=== PATIENT | male | born 1975 | race Caucasian/White ===

== ENCOUNTER 2019-10-24 08:41 | Observation (INO) | payer BC, SELFPAY ==
[2019-10-24] VITALS (13 sets, daily range): BP systolic 133–175; BP diastolic 92–107; PULSE 58–94; RESP 14–22; TEMP 36–36.8; O2SAT 96–99; BMI 30.5
--- NOTE | 2019-10-24 | ECHO_ITS ---
Patient Info Name: Jamal Merino Age: 44 years : 1975 Gender: Male Ht: 71 in Wt: 219 lbs BSA: 2.26 m2 HR: 61 bpm BP: 164 / 106 mmHg Heart Rhythm: Sinus Rhythm Technical Quality: Good Exam Date: 10/24/2019 3:53 PM Exam Location: [facility] Patient Status: Inpatient Admit Date: 10/24/2019 Staff Ordering Physician: Rachel Nguyen NP Software Educator: Renny Gomes RDCS Attending Provider: Delaney Milligan MD Referring Physician: Patrick HOLLAND; Exam Type: CA echo dop color flow w con Study Info Indications R07.9 - Chest pain, unspecified Complete two-dimensional, color flow and Doppler transthoracic echocardiogram is performed with contrast to opacify the left ventrical and to improve the deliniation of the left ventrical endocarial boarders. Contrast/Agitated Saline Contrast/Ag. Saline: Definity Amount: 2.00 ml Administered By: Nannette Mueller RN Existing IV Access: Yes History/Risk Factors Chest pain; uncontrolled HTN, EtOH. Summary 1. Normal left ventricular systolic function with no focal wall motion abnormalities. Ejection fraction measured 71%, visually 65-70%. Mild LVH. Diastolic dysfunction grade 1 is present. 2. No significant valve disease. 3. Somewhat technically difficult study. Definity echo contrast used. 4. Normal sinus rhythm. Left Ventricle Left ventricular chamber dimension is normal. Left ventricular systolic function is normal, estimated at 65-70%. There is no increased left ventricular wall thickness. Left ventricular septal wall motion is normal. The left ventricular diastolic function is grade I diastolic dysfunction. Right Ventricle Right ventricular chamber dimension is normal. Right ventricular systolic function is normal. Left Atria Left atrial chamber dimension is normal. Right Atria Right atrial chamber dimension is normal. Aortic Valve The aortic valve is trileaflet. There is no aortic valve sclerosis. There is no aortic valve stenosis. There is no aortic valve regurgitation. Pulmonic Valve The pulmonic valve is normal. There is no pulmonic valve stenosis. There is no pulmonic regurgitation. Mitral Valve The mitral valve has normal leaflets. There is no mitral valve stenosis. There is no mitral valve regurgitation. Tricuspid Valve The tricuspid valve leaflets are normal. There is no significant tricuspid valve stenosis. There is trace tricuspid valve regurgitation. No pulmonary hypertension, estimated pulmonary arterial systolic pressure is Empty. Pericardium/Pleural The pericardium appears normal. There is no pericardial effusion. Inferior Vena Cava Not well visualized inferior vena cava with >50% collapse upon inspiration consistent with Empty right atrial pressure, 5 mmHg. Aorta The aortic root size at the sinus of Valsalva is normal. The prox ascending aorta size is normal. Left Ventricular Outflow Tract Name Value Normal LVOT 2D LVOT Diameter 2.16 cm LVOT Doppler LVOT Peak Gradient 5 mmHg LV
--- NOTE | ~2019-10-24 | CT_ITS ---
EXAMINATION: CTA brain carotid DATE: 10/24/2019 10:19 INDICATION: Left-sided numbness. TECHNIQUE: Computed tomographic angiography (CTA) of the head was performed without and with 100 mL O mnipaque-350 intravenous contrast. CTA of the neck was performed with intravenous contrast. Automated exposure control and iterative reconstruction technique were employed. The dose-length product was 1 826.41 mGy-cm. Maximum intensity projection and volume rendered 3D-reconstructions were created by jean pierre ventura technologist on a separate workstation. COMPARISON: None. FINDINGS: HEAD CTA: There is no intracranial hemorrhage, acute infarction, or abnormal intracranial mass lesion . The ventricles are normal in size. There is mild mucosal thickening in the paranasal sinuses. The o rbits are normal. The mastoid air cells are normal. Left vertebral artery is dominant. There is no si gnificant stenosis of basilar artery or the posterior cerebral arteries. There is no significant sten osis of the intracranial internal carotid arteries or anterior or middle cerebral arteries. Anterior communicating artery is normal. The posterior communicating arteries are normal. There is no aneurysm . NECK CTA: Calcified left hilar lymph nodes are consistent with old granulomatous disease. There is no significant stenosis of the vertebral arteries. There is no visible plaque in the proximal internal carotid arteries. There is 0% stenosis of the proximal right internal carotid artery relative to norm al distal artery lumen diameter (NASCET criteria). There is 0% stenosis of the proximal left internal carotid artery relative to normal distal artery lumen diameter. There is mild cervical spondylosis. IMPRESSION: 1. Normal brain. No aneurysm or significant intracranial arterial stenosis. 2. Normal neck arteries. Reviewed, dictated and finalized at location A.
--- NOTE | ~2019-10-24 | XR_ITS ---
EXAMINATION: XR chest 2V EXAM DATE: 10/24/2019 10:31 INDICATION: Cough and fever. TECHNIQUE: Frontal and lateral projections of the chest obtained and reviewed. There is no prior aust[place] dy for comparison. FINDINGS: The lungs are clear. There are no pleural effusions. The cardiomediastinal silhouette is within normal limits. There is no pneumothorax suspected. The bones and soft tissues are unremarkab le. IMPRESSION: No acute cardiopulmonary findings. Reviewed, dictated and finalized at location B.
--- NOTE | ~2019-10-24 | US_ITS ---
EXAMINATION: US carotid duplex BI DATE: 10/25/2019 14:20 INDICATION: Paresthesias of the of left arm and leg. TECHNIQUE: Grayscale, color Doppler, and pulsed Doppler images of the cervical carotid arteries were obtained. The degree of vessel stenosis is placed in one of the following categories: normal, <50%, 5 0-69%, >=70% but less than near-occlusion, near-occlusion, or total occlusion. Note that percent sten osis relative to normal distal artery lumen diameter is indirectly measured from velocity measurement s as described by John, et al. Radiology 2003; 229:340-346. COMPARISON: CTA neck 10/24/2019 FINDINGS: RIGHT: The right common carotid artery (CCA) peak systolic velocity (PSV) is 98 cm/s. The right internal car otid artery (ICA) PSV is 61 cm/s. The right ICA end-diastolic velocity (EDV) is 30 cm/s. The right IC A/CCA PSV ratio is 0.6. Grayscale and color Doppler images yield an estimate of 0% diameter reduction from plaque in the ICA. There is antegrade flow in the right vertebral artery. LEFT: The left CCA PSV is 88 cm/s. The left ICA PSV is 69 cm/s. The left ICA EDV is 30 cm/s. The left ICA/C CA PSV ratio is 0.8. Grayscale and color Doppler images yield an estimate of 0% diameter reduction fr om plaque in the ICA. There is antegrade flow in the left vertebral artery. IMPRESSION: 1. Normal internal carotid arteries. Reviewed, dictated and finalized at location A.
--- NOTE | ~2019-10-24 | NM_ITS ---
EXAMINATION: NM stress w perf spect multi DATE: 10/25/2019 13:46 INDICATION: Chest pain. TECHNIQUE: Rest images were obtained following intravenous administration of 9.8 mCi Tc99m tetrofosmi n ([employer] The patient performed an exercise activity. At peak exercise, 31.7 mCi Tc99m tetrofosmin ([employer]) was administered intravenously, and stress images were obtained. Data was reconstructed in to short axis and horizontal and vertical long axis SPECT images. Gated SPECT images were also obtain ed. COMPARISON: None. FINDINGS: There is no definite reversible or fixed perfusion abnormality to suggest ischemia or infar ction. There is no segmental wall motion abnormality. Left ventricular ejection fraction measures 6 0%. IMPRESSION: 1. No definite ischemia or infarct. 2. Normal left ventricular ejection fraction measuring 60%. Reviewed, dictated and finalized at location A.
--- NOTE | 2019-10-24 08:58 | ED.CHESTPAIN ---
HPI - Chest Pain General Chief Complaint: Chest Pain Stated Complaint: cp Time Seen by Provider: 10/24/19 08:56 Source: patient and RN notes reviewed Mode of arrival: EMS Limitations: no limitations History of Present Illness HPI narrative: Pt is a 44 y/o male presenting to the ED via EMS c/o CP. Pt reports he started experiencing lt sided CP at 0745 this morning while dropping his child off at school. Pt states the pain is non-radiating and is currently 5/10 on the pain scale. Pt notes nothing has seemed to alleviate or worsen his pain. Pt also reports lightheadedness, dizziness, LUE numbness, and LLE numbness, but denies weakness or fever. Pt notes the lt sided numbness occurred with the CP and is still present in his ED bed. Pt reports he has had similar Sx's previously and was diagnosed with HLD and Anxiety. Pt notes he has been able to ambulate. Pt states he presented to an UC last Monday due to having cough, rhinorrhea, and chills and states he tested negative for Influenza, but they prescribed Flu medication anyway. Pt notes he is not compliant with his Statin medication and denies being a smoker. Pt states his only FMHx of Cardiovascular disease is HLD. Pertinent past history: other (HLD; Anxiety) Onset (ago): hour(s) (1.25) Pain location: left chest Associated symptoms: cough and other (LUE numbness; LLE numbness; Lightheadedness; dizziness; chills; rhinorrhea) Related Data Home Medications Medication Instructions Recorded Confirmed esomeprazole magnesium [Nexium] 40 mg PO DAILY 06/26/19 10/24/19 Allergies Allergy/AdvReac Type Severity Reaction Status Date / Time No Known Allergies Allergy Verified 10/24/19 08:44 Review of Systems Review of Systems: Narrative: Constitutional: Positive for chills. Negative for fever. HENT: Positive for rhinorrhea. Respiratory: Positive for cough. Cardiovascular: Positive for left sided chest pain. Neurological: Positive for lightheadedness, dizziness, LUE numbness, and LLE numbness. Negative for weakness. All systems reviewed & are unremarkable except as noted in HPI and below PMFSH Past Medical History Medical History (Updated 10/24/19 @ 16:54 by Consuelo Champion MD) Anxiety GERD (gastroesophageal reflux disease) HLD (hyperlipidemia) Hypertension Untreated Surgical History Surgical History (Updated 10/24/19 @ 15:33 by Rachel Nguyen NP) H/O knee surgery Left knee meniscus tear repair Family History Family History (Updated 10/24/19 @ 15:34 by Rachel Nguyen NP) Mother HLD (hyperlipidemia) Social History Social History (Updated 10/24/19 @ 15:35 by Rachel Nguyen NP) Social History: He lives with his and 3 children. They are in the process of transitioning from 1 house the other. 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 One of his children is a special needs. His sister Elvira Huddleston is a durable power associate attorney for healthcare. He desires to be a full code. He said that he socially smoked but does not do it routinely. Patient stated he drinks about 4 or 5 alcoholic drinks a day. He stated he has never been through alcoholic withdrawal symptoms in the past. No illicit drug Smoking status: Never smoker Alcohol intake: current Drinks per week: 28 Substance use: never Substance use type: does not use Occupation/Education: occupation Gender identity (if verbalized by the patient): Male Spiritual care concerns: No Agree to blood products: Yes Exam Const: General: no acute distress and well developed Orientation/consciousness: oriented to person, oriented to place, oriented to time and patient oriented x3 HENMT: Head: normocephalic Ears: external ears normal General nose exam: Normal external nose present Eyes: General: appearance normal, both eyes and all related structures Conjunctivae: conjunctivae normal Neck: Neck: normal visual inspection and full ROM Chest: Chest palpation & insp
--- NOTE | 2019-10-24 09:13 | ECG_ITS ---
Measurements Intervals [place] Rate: 79 P: 25 NM: 196 QRS: -34 QRSD: 112 T: 8 QT: 375 QTc: 432 Interpretive Statements SINUS RHYTHM WITH SINUS ARRHYTHMIA LEFT AXIS DEVIATION INTRAVENTRICULAR CONDUCTION DELAY DELAYED PRECORDIAL R/S TRANSITION BORDERLINE T WAVE ABNORMALITY- INFERIOR LEADS BORDERLINE ECG Electronically Signed On 10-24-2019 11:42:45 CDT by Ashwin Richard D.O.
--- NOTE | 2019-10-24 09:30 | PC.NURSE ---
Patient c/o feeling very dizzy and is noted to be diaphoretic at this time. Patient was lowered into a supine position and blood pressure checked. EDP was notified and nitro paste was removed from the patient at this time.
[2019-10-24 09:41] LABS: Basophils Percent Auto 0.7 % (0.2-1.2); Eosinophils Absolute Auto 0.1 K/mm3 (0-0.3); Eosinophils Percent Auto 2.4 % (0-4.4); Hematocrit 44.1 % (42.0-52.0); Hemoglobin 15.6 g/dL (14.0-18.0); Immature Granulocyte Absolute 0.01 K/mm3 (0.00-0.031); Immature Granulocyte Percent A 0.3 % (0-0.5); Lymphocytes Absolute Auto 1.42 K/mm3 (0.9-3.2); Lymphocytes Percent Auto 49.5 % (18.3-44.2); Mean Corpuscular HGB Conc 35.4 g/dl (32-36); Mean Corpuscular Hemoglobin 34.5 pg (26-34); Mean Corpuscular Volume 97.6 fl (80-100); Mean Platelet Volume 9.2 fl (7.4-10.4); Monocytes Absolute Auto 0.2 K/mm3 (0.1-0.6); Monocytes Percent Auto 6.6 % (2.6-8.5); Neutrophils Absolute Auto 1.2 K/mm3 (1.3-6.7); Neutrophils Percent Auto 40.5 % (45.5-73.1); Platelet Count Result 182 k/mm3 (150-375); Red Blood Count 4.52 M/mm3 (4.6-6.20); Red Cell Distribution Width 11.5 % (11.5-14.5); White Blood Count 2.9 K/mm3 (4.5-10.0)
[2019-10-24 09:52] LABS: Alanine Aminotransferase 112 U/L (4-50); Albumin Level 4.8 g/dL (3.5-5.1); Alkaline Phosphatase 71 U/L (38-126); Aspartate Amino Transferase 104 U/L (17-59); Bilirubin,Total 0.6 mg/dL (0.2-1.3); Blood Urea Nitrogen 6 mg/dL (9-20); Calcium 9.4 mg/dL (8.4-10.2); Carbon Dioxide 22 mmol/L (22-30); Chloride 101 mmol/L (98-107); Estimated CRCL calculation 122 ml/min; Estimated Glomerular Filt Rate > 60; Glucose 127 mg/dL (75-110); Potassium 3.7 mmol/L (3.4-5.0); Sodium 138 mmol/L (137-145)
[2019-10-24 10:04] LABS: Troponin I < 0.012 ng/mL (0.000-0.034)
[2019-10-24 12:42] LABS: Troponin I < 0.012 ng/mL (0.000-0.034)
[2019-10-24 12:55] LABS: Hepatitis B Surface Antigen Negative (Negative)
[2019-10-24 13:01] LABS: HAV RESULT Negative (Negative); Hepatitis B Core IgM Result Negative (Negative)
[2019-10-24 13:12] LABS: Hepatitis C Virus Antibody Negative (Negative)
[2019-10-24] MEDS: ASPIRIN 81 MG CHEWABLE TABLET PO (13:24)
[2019-10-24] MEDS: lisinopriL 10 MG TABLET PO (13:24)
[2019-10-24] MEDS: hydroCHLOROthiazide 25 MG TABLET PO (13:24)
--- NOTE | 2019-10-24 13:52 | ADMGEN ---
This patient, Jamal Merino, was admitted to IMU Room 202-. Patient/family oriented to hospital policies and general routines including ID bracelet, bed and alarms, visiting hours, pain management, procedures, bathroom and other care routines, personal items, smoking policy, room service/diet, and visiting hours. Valuables list has been completed. Information on how to activate the Rapid Response Team has been discussed. Patient/Family are encouraged to report perceived risks to care and to ask questions if they do not understand what they are told or what they should do.
--- NOTE | 2019-10-24 15:20 | PM.IMHP ---
H&P: HPI History of Present Illness Chief complaint: chest pain/left sided numbness Narrative: Jamal Merino is a 44 year old male with a history of having hyperlipidemia and hypertension. The patient does not take any medication. He does not monitor blood pressure on a regular basis. He has had no previous heart disease. He stated he did have a stress test in the past and it was negative. The patient tells me that he has been under a lot of stress recently. He started a new job in August and has 3 children. He is in the process of moving from his old house to another. He also has a special needs child that he takes care of at home as well. The patient stated that he started having chest pain at about 745 this morning after dropping child at school. It was nonradiating any said that his pain was 5/10 and nothing has resulted. He said it feels like it is in the middle of his chest. It does not resolve with rest is worse with movement. It is not reproducible. He has not performed any heavy lifting. He is also diaphoretic and shaky. The patient stated that he feels like he is ?hypertension? in his chest. He said that it is pressure. He does not have any nausea vomiting. He stated that he had viral symptoms approximately 1 week ago. He said that he was given antiviral medication in the clinic there was a 1 time dose but has not taken anything since. His influenza was found to be -1 week ago. Went into the room the patient had hand tremors and was diaphoretic. Patient tells me that he does drink about 4-5 alcoholic beverages a night every night. He stated that he is gone without drinking for 24 hours before not had withdrawals. Date of service 10/24/[address] a normal brain no aneurysm normal neck arteries. Patient was given hydrochlorothiazide wants lisinopril once and then aspirin once a noticed that he had nitro paste on his chest as well. I am not sure of the nitro paste came from EMS. Review of Systems Review of Systems: Narrative: Numbness and tingling to left arm and left leg now resolved. He cannot recall what blood pressure medication he was on in the past but he is no longer taking it. He also was on a statin and no longer takes that either. All systems reviewed & are unremarkable except as noted in HPI and below Constitutional: Constitutional: Reports as per HPI and Reports no additional constitutional complaints Eyes: Eyes: Reports as per HPI and Reports no additional eye complaints ENT: Reports system reviewed and no additional complaints, except as documented and Reports Normal hearing present Cardiovascular: Cardiovascular: Reports no additional cardiovascular complaints Respiratory: Respiratory: Reports no additional respiratory complaints and Reports no additional respiratory complaints Gastrointestinal: Gastrointestinal: Reports as per HPI and Reports no additional gastrointestinal complaints Musculoskeletal: Musculoskeletal: Reports no additional musculoskeletal complaints Integumentary/Breasts: Skin/Breast: Reports system reviewed and no additional complaints, except as docu and Reports as per HPI Neurologic: Reports system reviewed and no additional complaints, except as documented, Reports as per HPI and Reports Normal hearing present Psychiatric: Psychiatric: Reports no additional psychiatric complaints and Reports as per HPI Endocrine: Endocrine: Reports no additional endocrine complaints Hematologic/Lymphatic: Hematologic/Lymphatic: Reports no additional hematologic/lymphatic complaints Allergic/Immunologic: Allergic/Immunologic: Reports no additional allergic/immunologic complaints [facility] Past Medical History Medical History (Updated 10/24/19 @ 15:44 by Rachel Nguyen NP) Anxiety GERD (gastroesophageal reflux disease) HLD (hyperlipidemia) Hypertension Untreated Surgical History Surgical History (Updated 10/24/19 @ 15:33 by Rachel Nguyen NP) H/O knee surgery Left k
[2019-10-24 15:35] LABS: Troponin I < 0.012 ng/mL (0.000-0.034)
[2019-10-24] MEDS: PERFLUTREN LIPID MICROSPHERES 1.5 ML VIAL DILUTED TO 10 ML TOTAL VOLUME IV PUSH (16:34)
[2019-10-24] MEDS: CHLORDIAZEPOXIDE 25 MG CAPSULE PO (18:06)
[2019-10-25] VITALS (13 sets, daily range): BP systolic 141–156; BP diastolic 80–103; PULSE 53–101; RESP 16–22; TEMP 36.1–36.8; O2SAT 95–100
--- NOTE | 2019-10-25 | EST_ITS ---
Patient Info Name: Jamal Merino Age: 44 years : 1975 Gender: Male Ht: 71 in Wt: 215 lbs BSA: 2.23 m2 Exam Date: 10/25/2019 12:31 PM Exam Location: [facility] Stress Patient Status: Outpatient Admit Date: 10/24/2019 Staff Ordering Physician: Clarke Brantley MD Attending Provider: Delaney Milligan MD Exercise Technologist: Erin Layton RDCS Exercise Physician: Jamal Jose MD Exam Type: CA stress test treadmill w NM Study Info Indications R07.89 - Other chest pain A pharmacological stress test was performed. Summary 1. Normal sinus rhythm. 2. Leftward axis. 3. No abnormal ST/T wave changes with exercise. 4. None. 5. Clinically and electrocardiographically negative exercise stress test at 94% of age predicted maximum heart rate. 6. Nuclear perfusion study to be dictated by Radiology. Protocol: Hang Stress ECG Details Stage: REST Duration (min): 12 min : 41 sec Speed (mph): 0.0 Grade (%): 0 HR (bpm): 83 SBP (mmHg): 154 DBP (mmHg): 95 METS: --- Stage: REST Duration (min): 25 min : 7 sec Speed (mph): 0.0 Grade (%): 0 HR (bpm): 86 SBP (mmHg): 154 DBP (mmHg): 95 METS: --- Stage: STAGE 1 Duration (min): 1 min : 0 sec Speed (mph): 1.7 Grade (%): 10 HR (bpm): 102 SBP (mmHg): 154 DBP (mmHg): 95 METS: --- Stage: STAGE 1 Duration (min): 2 min : 0 sec Speed (mph): 1.7 Grade (%): 10 HR (bpm): 119 SBP (mmHg): 154 DBP (mmHg): 95 METS: --- Stage: STAGE 1 Duration (min): 3 min : 0 sec Speed (mph): 1.7 Grade (%): 10 HR (bpm): 115 SBP (mmHg): 172 DBP (mmHg): 104 METS: --- Stage: STAGE 2 Duration (min): 1 min : 0 sec Speed (mph): 2.5 Grade (%): 12 HR (bpm): 132 SBP (mmHg): 172 DBP (mmHg): 104 METS: --- Stage: STAGE 2 Duration (min): 2 min : 0 sec Speed (mph): 2.5 Grade (%): 12 HR (bpm): 141 SBP (mmHg): 170 DBP (mmHg): 99 METS: --- Stage: STAGE 2 Duration (min): 3 min : 0 sec Speed (mph): 2.5 Grade (%): 12 HR (bpm): 142 SBP (mmHg): 170 DBP (mmHg): 99 METS: --- Stage: STAGE 3 Duration (min): 1 min : 0 sec Speed (mph): 3.4 Grade (%): 14 HR (bpm): 155 SBP (mmHg): 166 DBP (mmHg): 101 METS: --- Stage: STAGE 3 Duration (min): 2 min : 0 sec Speed (mph): 3.4 Grade (%): 14 HR (bpm): 162 SBP (mmHg): 166 DBP (mmHg): 101 METS: --- Stage: STAGE 3 Duration (min): 3 min : 0 sec Speed (mph): 3.4 Grade (%): 14 HR (bpm): 163 SBP (mmHg): 187 DBP (mmHg): 103 METS: --- Stage: RECOVERY Duration (min): 0 min : 59 sec Speed (mph): 0.0 Grade (%): 0 HR (bpm): 149 SBP (mmHg): 187 DBP (mmHg): 103 METS: --- Stage: RECOVERY Duration (min): 1 min : 59 sec Speed (mph): 0.0 Grade (%): 0 HR (bp
[2019-10-25] MEDS: CHLORDIAZEPOXIDE 25 MG CAPSULE PO (01:54)
[2019-10-25 05:10] LABS: Basophils Percent Auto 0.4 % (0.2-1.2); Eosinophils Absolute Auto 0.1 K/mm3 (0-0.3); Eosinophils Percent Auto 3.1 % (0-4.4); Hematocrit 44.4 % (42.0-52.0); Immature Granulocyte Absolute 0.01 K/mm3 (0.00-0.031); Immature Granulocyte Percent A 0.2 % (0-0.5); Lymphocytes Absolute Auto 1.58 K/mm3 (0.9-3.2); Mean Corpuscular Hemoglobin 34.6 pg (26-34); Mean Corpuscular Volume 95.9 fl (80-100); Mean Platelet Volume 9.2 fl (7.4-10.4); Monocytes Absolute Auto 0.5 K/mm3 (0.1-0.6); Monocytes Percent Auto 10.4 % (2.6-8.5); Neutrophils Absolute Auto 2.3 K/mm3 (1.3-6.7); Neutrophils Percent Auto 50.9 % (45.5-73.1); Platelet Count Result 176 k/mm3 (150-375); Red Blood Count 4.63 M/mm3 (4.6-6.20); White Blood Count 4.5 K/mm3 (4.5-10.0)
[2019-10-25 06:02] LABS: Alanine Aminotransferase 102 U/L (4-50); Albumin Level 4.6 g/dL (3.5-5.1); Alkaline Phosphatase 68 U/L (38-126); Aspartate Amino Transferase 78 U/L (17-59); Bilirubin,Total 1.1 mg/dL (0.2-1.3); Blood Urea Nitrogen 10 mg/dL (9-20); Calcium 9.8 mg/dL (8.4-10.2); Carbon Dioxide 28 mmol/L (22-30); Chloride 96 mmol/L (98-107); Cholesterol 223 mg/dL (0-200); Estimated CRCL calculation 97 ml/min; Estimated Glomerular Filt Rate > 60; Glucose 96 mg/dL (75-110); Magnesium 1.8 mg/dL (1.6-2.3); Potassium 3.5 mmol/L (3.4-5.0); Sodium 133 mmol/L (137-145); Triglycerides 74 mg/dL (<150)
[2019-10-25 06:08] LABS: HDL Direct 123 mg/dL
[2019-10-25 06:11] LABS: LDL Cholesterol Direct 103 mg/dL
[2019-10-25] MEDS: hydrALAZINE HCL 20 MG/ML VIAL 10 MG IV PUSH (08:18)
--- NOTE | 2019-10-25 12:05 | PC.NURSE ---
Pt to nuclear medicine for Aric
[2019-10-25] MEDS: PANTOPRAZOLE 40 MG TABLET PO (14:16)
[2019-10-25] MEDS: FOLIC ACID 1 MG TABLET PO (14:16)
[2019-10-25] MEDS: THIAMINE HCL 100 MG TABLET PO (14:16)
[2019-10-25] MEDS: POTASSIUM CHLORIDE 20 MEQ TABLET 40 MEQ PO (14:16)
[2019-10-25] MEDS: ASPIRIN 81 MG CHEWABLE TABLET PO (14:20)
--- NOTE | 2019-10-25 14:20 | PC.NURSE ---
[facility]
--- NOTE | 2019-10-25 17:56 | PM.DS ---
DS: Diagnosis Admitting Diagnosis Admitting Diagnosis: Chest pain, unspecified Discharge Diagnosis (1) Chest pain: Code(s): R07.9 - Chest pain, unspecified Status: Acute Assessment and Plan: Troponins negative x3. Nuclear stress test revealed no ischemia with normal ejection fraction is 60%. . Patient has a lot of anxiety which could be part of this and also has uncontrolled hypertension. echo with normal ejection fraction with no wall motion abnormalities or valvular abnormalities. (2) Alcohol abuse: Code(s): F10.10 - Alcohol abuse, uncomplicated Status: Acute Assessment and Plan: Librium, folic acid, and thiamine while here. Increased to curtail his alcohol consumption. (3) Hypertension: Code(s): I10 - Essential (primary) hypertension Status: Chronic Assessment and Plan: P.r.n. hydralazine. Initially and discharged with lisinopril 10 daily to follow-up with [facility] for further adjustment (4) HLD (hyperlipidemia): Code(s): E78.5 - Hyperlipidemia, unspecified Status: Chronic Assessment and Plan: Total cholesterol 223 and with his TIA like symptoms use encouraged to follow-up with Dr. Angelique gore to resume statin therapy (5) Anxiety: Code(s): F41.9 - Anxiety disorder, unspecified Status: Chronic Assessment and Plan: P.r.n. librium while here (6) GERD (gastroesophageal reflux disease): Code(s): K21.9 - Gastro-esophageal reflux disease without esophagitis Status: Chronic Assessment and Plan: Continue Nexium (7) Abnormal LFTs: Code(s): R94.5 - Abnormal results of liver function studies Status: Acute Assessment and Plan: Mild elevated LFTs which dropped quite a bit within 24 hours suggesting ETOH etiology. Hepatitis a B and C profile were negative. Again encouraged decrease alcohol consumption (8) Paresthesia: Code(s): R20.2 - Paresthesia of skin Status: Acute Assessment and Plan: Left arm and leg paresthesias compatible with possible TIA. CT of the brain and the neck showed no occlusion or acute bleed. Echocardiogram as stated with normal with no valvular problems are source of emboli. Symptoms all resolved. Be maintained on aspirin 81 mg daily, antihypertensive, and follow-up with his primary care for statin treatment DS: Summary Hospital Course Hospital Course: 44-year-old white male with known hypertension has not been faithful in taking his medication developed some substernal pressure-type sensation and paresthesias in his left arm and leg while driving. With since is persisting came to the emergency room subsequently admitted. Serial enzymes were negative and underwent nuclear stress testing which showed no evidence of any reversible defects or ischemia. CTA of the brain and the neck was unremarkable as was echocardiogram. Symptoms subsided. He admits to being very anxious individual and under lot of stress. He was discharged home on aspirin 81 mg daily with lisinopril with activity as tolerated and encouraged to follow-up with Dr. Haley for probable reinstituting statin therapy Time Spent with Patient Time attestation: Total time spent providing and/or coordinating discharge services: 35 minutes Exam Narrative: Exam Narrative: Condition on discharge Blood pressure 140/100 pulse is 80 Lungs clear CV regular rate rhythm no murmurs or gallops Abdomen soft nontender no masses Extremities without edema good distal pulses Is up about no particular problems had undergone stress testing and was discharged home to follow up with Dr. Haley within the next 2 weeks. DS: Data Data Completed and Pending Labs on day of discharge: Labs from last 24 hours 10/25/19 10/25/19 04:13 04:13 WBC 4.5 RBC 4.63 Hgb 16.0 Hct 44.4 MCV 95.9 MCH 34.6 H MCHC 36.0 RDW 11.0 L Plt Count 176 MPV 9.2 Immature Gran % (Auto) 0.2 Neut % (Auto)
== END 2019-10-25 15:55 | disposition home or self-care (01) ==
LOC: ANHED 13:06 → ANHIMU 15:14
PROVIDERS: Nurse Practitioner; Admitting Provider Family Medicine; Emergency Provider Emergency Medicine; PCP Family Medicine Adolescent Medicine; Visit Provider Internal Medicine
DX: R07.9 Chest pain, unspecified (principal); R20.2 Paresthesia of skin; F41.9 Anxiety disorder, unspecified; I10 Essential (primary) hypertension; F10.10 Alcohol abuse, uncomplicated; E78.5 Hyperlipidemia, unspecified; K21.9 Gastro-esophageal reflux disease without esophagitis; R79.89 Other specified abnormal findings of blood chemistry
CPT/HCPCS: 36415; 70496; 70498; 71046; 78452; 80053; 80061; 80074; 83735; 84484; 85025; 93005; 93017; 93880; 96374; 96375; 99285; A9270; A9502; C8929; G0378; J0360; Q9957; Q9967

== ENCOUNTER → 2020-03-23 12:02 | Outpatient (CLI) | payer BC, SELFPAY ==
--- NOTE | ~2020-03-23 | US_ITS ---
US abdomen complete DATE: 03/23/2020 12:23 INDICATION: Epigastric abdominal pain TECHNIQUE: Real-time imaging and Doppler analysis of the COMPARISON: None FINDINGS: Abdominal aorta is of normal caliber. The inferior vena cava is unremarkable. There is fatty change of the liver. Normal hepatopedal portal venous flow direction. No hepatic, panc reatic, splenic or renal space-occupying mass lesion is detected. No gallstones, gallbladder wall thickening or abnormal pericholecystic fluid collection. Negative son ographic Mckeon's sign. The common bile duct measures 3.5 mm, normal. Normal size of the kidneys. No renal mass lesion or hydronephrosis is detected. IMPRESSION: Hepatic steatosis Reviewed, dictated and finalized at [facility] Reviewed, dictated and finalized at [facility]. IMPRESSION: Hepatic steatosis
== END ==
PROVIDERS: PCP Family Medicine Adolescent Medicine; Visit Provider Family Medicine Adolescent Medicine
DX: R10.13 Epigastric pain (principal); K76.0 Fatty (change of) liver, not elsewhere classified
CPT/HCPCS: 76700

== ENCOUNTER 2020-05-18 17:12 | Emergency (ER) | payer BC, SELFPAY ==
--- NOTE | ~2020-05-18 | XR_ITS ---
EXAMINATION: XR chest 2V DATE: 05/18/2020 17:40 INDICATION: Cough and shortness of breath TECHNIQUE: PA and lateral views of the chest are obtained. COMPARISON: 10/24/2019 FINDINGS: The lungs are free of acute opacities. There is no pleural effusion or pneumothorax. The ca rdiomediastinal silhouette is normal. The visualized bones and soft tissues are unremarkable. IMPRESSION: 1. No acute cardiopulmonary abnormality. Reviewed, dictated and finalized at [facility].
[2020-05-18 17:15] VITALS: BP 119/73; PULSE 122; RESP 20; TEMP 36.3; O2SAT 100
--- NOTE | 2020-05-18 17:29 | ED.URI ---
HPI - URI/Sore Throat General Chief Complaint: Upper Respiratory Infection Stated Complaint: cough/running nose/cold sweats/vomiting Source: patient and RN notes reviewed Limitations: no limitations Related Data Home Medications Medication Instructions Recorded Confirmed atorvastatin 20 mg PO DAILY 05/18/20 05/18/20 Allergies Allergy/AdvReac Type Severity Reaction Status Date / Time No Known Allergies Allergy Verified 05/18/20 17:27 Review of Systems Review of Systems: Narrative: General/Constitutional: No weight loss,fever Eyes: N0: Redness,discharge Ears/Nose/Throat: No: Epistaxis,ear discharge Respiratory: Denies: Hemoptysis Gastrointestinal: No Vomiting, Bleeding-rectal Skin: No Lumps, eruption Neurologic: No Focal Weakness,Sz Hematologic: Denies: Petechiae/Purpura Psychiatric: No: Suicida ideationl All Other Systems: Reviewed and Negative [facility] Past Medical History Medical History (Updated 10/24/19 @ 16:54 by Consuelo Champion MD) Anxiety GERD (gastroesophageal reflux disease) HLD (hyperlipidemia) Hypertension Untreated Surgical History Surgical History (Updated 10/24/19 @ 15:33 by Rachel Nguyen NP) H/O knee surgery Left knee meniscus tear repair Family History Family History (Updated 10/24/19 @ 15:34 by Rachel Nguyen NP) Mother HLD (hyperlipidemia) Social History Social History (Updated 10/24/19 @ 15:35 by Rachel Nguyen NP) Social History: He lives with his and 3 children. They are in the process of transitioning from 1 house the other. 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 One of his children is a special needs. His sister Elvira Huddleston is a durable power senior trial attorney for healthcare. He desires to be a full code. He said that he socially smoked but does not do it routinely. Patient stated he drinks about 4 or 5 alcoholic drinks a day. He stated he has never been through alcoholic withdrawal symptoms in the past. No illicit drug Smoking status: Never smoker Alcohol intake: current Drinks per week: 28 Substance use: never Substance use type: does not use Gender identity (if verbalized by the patient): Male Spiritual care concerns: No Agree to blood products: Yes Comments At time of signature, agree with nursing past medical, surgical, social and family history. There is no relevant family history pertinent to the presenting complaint Exam Narrative: Exam Narrative: General Appearance: Well appearing, No distress EYE: PERRLA, Conjunctiva clear Ears: External ear normal Nose: Normal nose Mouth/Throat: Normal appearing, Normal lips Neck: Supple Respiratory: Airway patent, No respiratory distress Cardiovascular: RRR Abdomen: Soft, Non-tender, No massess, No organomegaly (no rebound/ surgical signs), Hyperactive bowel sounds Musculoskeletal: Full ROM Skin: Warm, Dry Neurological: A&O x3, CN II-X intact Psychiatric: Normal mood, Normal affect Course Vital Signs Vital signs: Vital Signs Temperature 97.3 F L 05/18/20 17:15 Pulse Rate 122 H 05/18/20 17:15 Respiratory Rate 20 05/18/20 17:15 Blood Pressure 119/73 05/18/20 17:15 Pulse Oximetry 100 05/18/20 17:15 Temperature 97.3 F L 05/18/20 17:15 Pulse Rate 122 H 05/18/20 17:15 Respiratory Rate 20 05/18/20 17:15 Blood Pressure 119/73 05/18/20 17:15 Pulse Oximetry 100 05/18/20 17:15 Discharge Plan Discharge Prescriptions: No Action atorvastatin 20 mg Tablet 20 mg PO DAILY RF: 0 lisinopril 10 mg tablet 10 mg PO DAILY Qty: 30 RF: 0
[2020-05-18] MEDS: ONDANSETRON HCL ODT 4 MG TABLET PO (18:00)
--- NOTE | 2020-05-18 18:24 | ED.NAVMDI ---
HPI - Nausea/Vomiting/Diarrhea General Chief complaint: Upper Respiratory Infection Stated complaint: cough/running nose/cold sweats/vomiting Source: patient and RN notes reviewed Mode of arrival: ambulatory Limitations: no limitations History of Present Illness HPI Narrative: The patient, a non-smoker/daily drinker, presents with gastric symptoms. The patient notes the same-day onset of 12-hour history of first nausea and nonbloody vomiting x6-8, followed by diarrhea at 8-10. This is associated with mild right-sided and GERD epigastric abdominal discomfort; no fever, bile, travel history, prior surgeries, sick family, loss of taste/smell, sore throat, earache, . Patient does indicate he has had a least a 2-week, half month history of preceding cough and rhinorrhea that he associated with seasonal allergies, due to associated sneezing. Past history is remarkable for noncontributary abdominal ultrasound, hepatitis testing this year for elevated LFTs-his other springtime labs were noncontributory after hospital admission for atypical chest pain.. Patient's vital signs remarkable for tachycardia he is advised to go to hospital, which he declines AMA. Advised to go to higher-level care facility to higher level testing , because for early diagnosis of serious problems [dehydration, withdrawal, atypical appendicitis, etc], clear specific symptoms do not develope until later. Related Data Home Medications Medication Instructions Recorded Confirmed esomeprazole magnesium [Nexium] 20 mg PO DAILY 05/18/20 05/19/20 fluticasone propionate 50 mcg INTRANASAL DAILY 05/18/20 05/19/20 Allergies Allergy/AdvReac Type Severity Reaction Status Date / Time No Known Allergies Allergy Verified 05/18/20 19:28 Review of Systems Review of Systems: Narrative: General/Constitutional: No weight loss,fever Eyes: N0: Redness,discharge Ears/Nose/Throat: No: Epistaxis,ear discharge Respiratory: Denies: Hemoptysis Gastrointestinal: REPORTS diarrhea and Vomitin; no Bleeding-rectal Skin: No Lumps, eruption Neurologic: No Focal Weakness,Sz Hematologic: Denies: Petechiae/Purpura Psychiatric: No: Suicida ideationl All Other Systems: Reviewed and Negative [facility] Past Medical History Medical History (Updated 05/19/20 @ 00:00 by Background Daemon) Anxiety GERD (gastroesophageal reflux disease) HLD (hyperlipidemia) Hypertension Untreated Surgical History Surgical History H/O knee surgery Left knee meniscus tear repair Family History Family History (Updated 05/19/20 @ 00:06 by Ayse Live RN) Mother HLD (hyperlipidemia) Cerebrovascular accident Fatty liver Father Hypertension Malignant neoplasm of prostate Sibling Hypertension Social History Social History Social History: He lives with his and 3 children. They are in the process of transitioning from 1 house the other. 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 One of his children is a special needs. His sister Elvira Huddleston is a durable power energy attorney for healthcare. He desires to be a full code. He said that he socially smoked but does not do it routinely. Patient stated he drinks about 4 or 5 alcoholic drinks a day. He stated he has never been through alcoholic withdrawal symptoms in the past. No illicit drug Smoking status: Never smoker Second hand tobacco smoke exposure: No Alcohol intake: current Drinks per week: 25 Substance use: never Substance use type: does not use Gender identity (if verbalized by the patient): Male Spiritual care concerns: No Agree to blood products: Yes Exam Narrative: Exam Narrative: General Appearance: Sl. ill appearing, No distress EYE: PERRLA, Conjunctiva clear Ears: External ear normal Nose: Normal nose Mouth/Throat: Normal appearing, Normal lips Neck: Araujo
[2020-05-18 18:27] VITALS: BP 118/74; PULSE 113; RESP 18; O2SAT 99
== END 2020-05-18 18:27 | disposition left against medical advice (07) ==
PROVIDERS: Emergency Provider Emergency Medicine; PCP Family Medicine Adolescent Medicine
DX: R11.2 Nausea with vomiting, unspecified (principal); R19.7 Diarrhea, unspecified; F10.10 Alcohol abuse, uncomplicated; Z72.0 Tobacco use; K21.9 Gastro-esophageal reflux disease without esophagitis; E78.5 Hyperlipidemia, unspecified; I10 Essential (primary) hypertension
CPT/HCPCS: 71046; 99213; A9270; G0463

== ENCOUNTER 2020-05-18 18:58 | Observation (INO) | payer BC, SELFPAY ==
--- NOTE | ~2020-05-18 | CT_ITS ---
EXAMINATION: CT abdomen pelvis wo con DATE: 05/18/2020 20:49 INDICATION: Vomiting and diarrhea TECHNIQUE: Computed tomography (CT) of the abdomen and pelvis was performed without intravenous contr ast. The dose-length product (DLP) was 775.51 mGy-cm. Automated exposure control and iterative recons truction technique were employed. COMPARISON: None FINDINGS: The lung bases are clear. The heart size is normal. The liver is diffusely low in attenuati on when compared with the spleen, consistent with hepatic steatosis. There is a small sliding hiatal hernia. The spleen, pancreas, gallbladder, and adrenal glands are normal. The kidneys are unremarkabl e. No pathologically enlarged abdominal or pelvic lymph nodes are identified. There is a moderate vol ume of ascites. The appendix is normal. There is no free intraperitoneal gas or evidence of bowel obs truction. IMPRESSION: 1. Diffuse low-attenuation of the liver which could reflect steatosis or hepatitis. 2. Moderate volume of ascites. Reviewed, dictated and finalized at location [facility]. IMPRESSION: 1. Diffuse low-attenuation of the liver which could reflect steatosis or hepati tis. 2. Moderate volume of ascites.
[2020-05-18 19:26] VITALS: BP 104/82; PULSE 128; RESP 18; TEMP 37.1; O2SAT 99
[2020-05-18 19:40] LABS: Basophils Absolute Auto 0.1 K/mm3 (0.0-0.1); Basophils Percent Auto 0.5 % (0.2-1.2); Eosinophils Percent Auto 0.1 % (0-4.4); Hematocrit 51.7 % (42.0-52.0); Hemoglobin 18.6 g/dL (14.0-18.0); Immature Granulocyte Absolute 0.03 K/mm3 (0.00-0.031); Immature Granulocyte Percent A 0.3 % (0-0.5); Lymphocytes Absolute Auto 1.19 K/mm3 (0.9-3.2); Lymphocytes Percent Auto 12.9 % (18.3-44.2); Mean Corpuscular Hemoglobin 37.4 pg (26-34); Mean Platelet Volume 9.9 fl (7.4-10.4); Monocytes Absolute Auto 0.6 K/mm3 (0.1-0.6); Neutrophils Absolute Auto 7.4 K/mm3 (1.3-6.7); Neutrophils Percent Auto 80.2 % (45.5-73.1); Nucleated Red Blood Cells Perc 0.4 % (0.0-0.2); Platelet Count Result 205 k/mm3 (150-375); Red Blood Count 4.97 M/mm3 (4.6-6.20); Red Cell Distribution Width 12.1 % (11.5-14.5); White Blood Count 9.2 K/mm3 (4.5-10.0)
--- NOTE | 2020-05-18 19:40 | PC.NURSE ---
pt started feeling dizzy and diaphoretic in triage, pulse in 120. ekg done on pt.
--- NOTE | 2020-05-18 19:46 | ECG_ITS ---
Measurements Intervals [place] Rate: 99 P: 34 OK: 180 QRS: -38 QRSD: 96 T: 4 QT: 322 QTc: 413 Interpretive Statements SINUS RHYTHM LEFT AXIS DEVIATION BORDERLINE R WAVE PROGRESSION, ANTERIOR LEADS BORDERLINE T WAVE ABNORMALITY- INFERIOR LEADS BORDERLINE ECG Electronically Signed On 05-19-2020 8:05:30 CDT by Ashwin Richard D.O.
[2020-05-18 19:51] LABS: Alanine Aminotransferase 137 U/L (4-50); Albumin Level 4.8 g/dL (3.5-5.1); Alkaline Phosphatase 81 U/L (38-126); Anion Gap 22 mmol/L (8-16); Aspartate Amino Transferase 115 U/L (17-59); Blood Urea Nitrogen 16 mg/dL (9-20); Calcium 9.9 mg/dL (8.4-10.2); Carbon Dioxide 21 mmol/L (22-30); Chloride 97 mmol/L (98-107); Estimated CRCL calculation 54 ml/min; Estimated Glomerular Filt Rate 39; Glucose 165 mg/dL (75-110); Lipase 227 U/L (23-300); Potassium 4.6 mmol/L (3.4-5.0); Sodium 140 mmol/L (137-145)
[2020-05-18 20:08] LABS: Add Urine Microscopic? YES; Appearance Urine Clear (Clear); Bilirubin Urine 1+ (Negative); Blood Urine Negative (Negative); Color Urine Amber (Yellow); Glucose Urine UA Negative (Negative); Ketones Urine 1+ mg/dL (Negative); Leukocyte Esterase Ur Negative LEU/UL (Negative); Nitrate Urine Negative (Negative); Protein Urine 2+ mg/dL (Negative)
[2020-05-18 20:15] LABS: Specific Grav Ur 1.032 (1.001-1.035)
[2020-05-18 20:25] LABS: Bacteria Urine 1+ /hpf; Squamous Epithelial Cell Urine Rare /hpf (Few); WBC Urine None seen /hpf (0-3)
[2020-05-18 20:26] LABS: RBC Urine 0-2 /hpf (0-2)
[2020-05-18 20:30] VITALS: BP 128/88; PULSE 104; RESP 18; TEMP 36.8; O2SAT 98
--- NOTE | 2020-05-18 20:35 | ED.GENADULT ---
HPI - General Adult General Chief complaint: Abdominal Pain Stated complaint: sent from exp care/r/o appy Time Seen by Provider: 05/18/20 20:23 Source: patient History of Present Illness HPI narrative: Patient is a 44 y/o male complaining of vomiting and diarrhea starting today. He states that he vomited more than 10 time today. There is no alleviating or exacerbating factor. He is vomiting up mostly bile. He also had more than 10 episodes of diarrhea. He has some mild lower abdominal pain. He was seen at urgent care earlier today and sent here to have CT to evaluate for appendicitis. Related Data Home Medications Medication Instructions Recorded Confirmed atorvastatin 20 mg PO DAILY 05/18/20 05/18/20 Allergies Allergy/AdvReac Type Severity Reaction Status Date / Time No Known Allergies Allergy Verified 05/18/20 19:28 Review of Systems Constitutional: Constitutional: Denies chills, Denies fever(s), Denies headache(s) and Denies weakness Eyes: Eyes: Denies blurry vision ENT: Denies headache(s) and Denies neck pain Cardiovascular: Cardiovascular: Denies chest pain and Denies dyspnea Respiratory: Respiratory: Denies cough and Denies dyspnea Gastrointestinal: Gastrointestinal: Reports abdominal pain, Reports diarrhea, Reports nausea and Reports vomiting Genitourinary: Genitourinary: Denies hematuria and Denies dysuria Musculoskeletal: Musculoskeletal: Denies back pain and Denies neck pain Neurologic: Denies headache(s) and Denies weakness PMFSH Past Medical History Medical History Anxiety GERD (gastroesophageal reflux disease) HLD (hyperlipidemia) Hypertension Untreated Surgical History Surgical History H/O knee surgery Left knee meniscus tear repair Family History Family History Mother HLD (hyperlipidemia) Social History Social History Social History: He lives with his and 3 children. They are in the process of transitioning from 1 house the other. 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 One of his children is a special needs. His sister Elvira Huddleston is a durable power real estate associate attorney for healthcare. He desires to be a full code. He said that he socially smoked but does not do it routinely. Patient stated he drinks about 4 or 5 alcoholic drinks a day. He stated he has never been through alcoholic withdrawal symptoms in the past. No illicit drug Smoking status: Never smoker Alcohol intake: current Drinks per week: 28 Substance use: never Substance use type: does not use Gender identity (if verbalized by the patient): Male Spiritual care concerns: No Agree to blood products: Yes Exam Const: General: no acute distress and well developed Orientation/consciousness: oriented to person, oriented to place, oriented to time and patient oriented x3 HENMT: Head: normocephalic Ears: external ears normal General nose exam: Normal external nose present Eyes: General: appearance normal, both eyes and all related structures Conjunctivae: conjunctivae normal Neck: Neck: normal visual inspection and full ROM Chest: Chest palpation & inspection: normal inspection of the chest and no tenderness Resp: Effort & Inspection: normal respiratory effort Auscultation: clear to auscultation bilaterally Cardio: Rate: tachycardic Rhythm: regular rhythm GI: GI Palp: No abdominal tenderness and Yes Soft to palpation Skin: General skin exam: normal color and turgor normal Neuro: General: oriented to person, oriented to place, oriented to time and patient oriented x3 Cognition (Neuro): normal cognition Extrem: General: normal to inspection, full ROM and no pedal edema Psych: Appearance: grossly normal Mental Status: mental status grossly normal
[2020-05-18] MEDS: METOCLOPRAMIDE HCL INJ 10 MG/2 ML VIAL IV PUSH (21:23)
[2020-05-18] MEDS: SODIUM CHLORIDE 0.9% IV 1,000 ML 999 ML IV CONT (21:23)
[2020-05-18] MEDS: SODIUM CHLORIDE 0.9% IV 1,000 ML 999 ML (21:34)
--- NOTE | 2020-05-18 21:34 | PC.NURSE ---
vrbo to give pt 1l NS Bolus x1 from dr lemus
[2020-05-18 21:53] LABS: INR 1.1; Prothrombin Time 14.3 Seconds (11.1-14.7)
[2020-05-18 21:54] LABS: Partial Thromboplastin Time 25.6 SECONDS (22.3-36.8)
[2020-05-18 21:56] LABS: Ethanol < 10 mg/dL (<10)
[2020-05-18 22:58] VITALS: BP 106/59; PULSE 85; RESP 17; O2SAT 99
--- NOTE | 2020-05-18 23:45 | ADMGEN ---
This patient, Jamal Merino, was admitted to Medical Room 345-. Patient/family oriented to hospital policies and general routines including ID bracelet, bed and alarms, visiting hours, pain management, procedures, bathroom and other care routines, personal items, smoking policy, room service/diet, and visiting hours. Valuables list has been completed. Information on how to activate the Rapid Response Team has been discussed. Patient/Family are encouraged to report perceived risks to care and to ask questions if they do not understand what they are told or what they should do.
[2020-05-18 23:57] VITALS: BP 172/102; PULSE 125; RESP 18; TEMP 36.6; O2SAT 100; BMI 30.8
[2020-05-18] MEDS: SODIUM CHLORIDE 0.9% IV 1,000 ML 125 ML IV CONT (23:58)
[2020-05-19] VITALS (11 sets, daily range): BP systolic 126–149; BP diastolic 62–92; PULSE 66–102; RESP 14–16; TEMP 36.3–36.8; O2SAT 98
[2020-05-19 00:17] LABS: Amphetamine Screen Urine Negative (Negative); Barbiturate Screen Urine Negative (Negative); Benzodiazepines Screen Urine Negative (Negative); Cannabinoid Screen Urine Negative (Negative); Cocaine Screen Urine Negative (Negative); Methadone Screen Urine Negative (Negative); Opiate Screen Urine Negative (Negative); Phencyclidine Screen Urine Negative (Negative)
[2020-05-19] MEDS: SODIUM CHLORIDE 0.9% IV 1,000 ML 125 ML IV CONT ×2 (07:50→17:44)
[2020-05-19 15:48] LABS: Hematocrit 36.9 % (42.0-52.0); Hemoglobin 13.1 g/dL (14.0-18.0); Immature Platelet Fraction Pct 3.2 % (0.9-11.2); Mean Corpuscular HGB Conc 35.5 g/dl (32-36); Mean Corpuscular Hemoglobin 37.4 pg (26-34); Mean Corpuscular Volume 105.4 fl (80-100); Mean Platelet Volume 9.7 fl (7.4-10.4); Platelet Count Result 133 k/mm3 (150-375); Red Cell Distribution Width 12.3 % (11.5-14.5); White Blood Count 4.9 K/mm3 (4.5-10.0)
[2020-05-19 15:58] LABS: Anion Gap 7 mmol/L (8-16); Blood Urea Nitrogen 25 mg/dL (9-20); Calcium 8.6 mg/dL (8.4-10.2); Carbon Dioxide 27 mmol/L (22-30); Chloride 103 mmol/L (98-107); Estimated CRCL calculation 72 ml/min; Estimated Glomerular Filt Rate 55; Glucose 97 mg/dL (75-110); Magnesium 1.6 mg/dL (1.6-2.3); Potassium 4.2 mmol/L (3.4-5.0); Sodium 137 mmol/L (137-145)
--- NOTE | 2020-05-19 17:57 | PM.IMHP ---
H&P: HPI History of Present Illness Date/Time: 05/19/20 17:57 Chief complaint: valerie, dehydration Narrative: Jamal Merino is a 44 year old male presented emergency department with a complaint of nausea or vomiting and diarrhea, patient states 1 of his neighbor brought home made macroni and cheese he and his both ate the meals however his last intake was around 7:00 p.m. and about 5 hours later patient started to have vomiting consisting of p.o. intake and bile which continued most of the night, then later patient developed diarrhea watery no blood or mucus and patient presented emergency depart further evaluation, patient was given anti emetics, most likely patient has a food poisoning, however his has no symptoms, by the time I saw the patient today patient's symptoms have resolved he was able to tolerate his breakfast and had no symptoms, however patient is severely dehydrated his BUN and creatinine elevated, will continue to hydrate the patient and monitor his kidney function once clinically stable will discharge the patient home tomorrow morning, Review of Systems Review of Systems: All systems reviewed & are unremarkable except as noted in HPI and below PMFSH Past Medical History Medical History Anxiety GERD (gastroesophageal reflux disease) HLD (hyperlipidemia) Hypertension Untreated Surgical History Surgical History H/O knee surgery Left knee meniscus tear repair Family History Family History (Updated 05/19/20 @ 00:06 by Ayse Live RN) Mother HLD (hyperlipidemia) Cerebrovascular accident Fatty liver Father Hypertension Malignant neoplasm of prostate Sibling Hypertension Social History Social History Social History: He lives with his and 3 children. They are in the process of transitioning from 1 house the other. 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 One of his children is a special needs. His sister Elvira Huddleston is a durable power civil rights attorney for healthcare. He desires to be a full code. He said that he socially smoked but does not do it routinely. Patient stated he drinks about 4 or 5 alcoholic drinks a day. He stated he has never been through alcoholic withdrawal symptoms in the past. No illicit drug Smoking status: Never smoker Second hand tobacco smoke exposure: No Alcohol intake: current Drinks per week: 25 Substance use: never Substance use type: does not use Gender identity (if verbalized by the patient): Male Spiritual care concerns: No Agree to blood products: Yes Meds Home Medications and Allergies Home Medications Medication Instructions Recorded Confirmed Type lisinopril 10 mg PO DAILY #30 tablet 10/25/19 05/19/20 Rx esomeprazole magnesium [Nexium] 20 mg PO DAILY 05/18/20 05/19/20 History fluticasone propionate 50 mcg INTRANASAL DAILY 05/18/20 05/19/20 History Allergies Allergy/AdvReac Type Severity Reaction Status Date / Time No Known Allergies Allergy Verified 05/18/20 19:28 Vital Signs Vital Signs - 24 hr 05/18/20 19:26 05/18/20 20:30 05/18/20 22:58 Temperature 98.7 F 98.2 F Pulse Rate 128 H 104 H 85 Respiratory Rate 18 18 17 Blood Pressure 104/82 128/88 106/59 L Pulse Oximetry 99 98 99 05/18/20 23:57 05/19/20 00:00 05/19/20 00:47 Temperature 97.8 F Pulse Rate 125 H 89 Respiratory Rate 18 Blood Pressure 172/102 H 126/62 Pulse Oximetry 100 05/19/20 04:00 05/19/20 05:27 05/19/20 08:00 Temperature 97.7 F Pulse Rate 70 82 102 H Respiratory Rate 14 Blood Pressure 149/92 H Pulse Oximetry 98 05/19/20 09:37 05/19/20 12:00 05/19/20 14:00 Temperature 97.3 F L Pulse Rate 88 66 76 Respiratory Rate 16 16 Blood Pressure 133/76 Pulse Oximetry 98 98 05/19/20 16:00 Temperature Pul
[2020-05-20] VITALS: PULSE 59
[2020-05-20] MEDS: SODIUM CHLORIDE 0.9% IV 1,000 ML 125 ML IV CONT (01:50)
[2020-05-20 04:00] VITALS: PULSE 54
[2020-05-20 05:46] VITALS: BP 146/92; PULSE 62; RESP 16; TEMP 36.2; O2SAT 98
[2020-05-20 08:00] VITALS: PULSE 62
[2020-05-20 08:50] LABS: Hematocrit 39.1 % (42.0-52.0); Hemoglobin 13.8 g/dL (14.0-18.0); Mean Corpuscular HGB Conc 35.3 g/dl (32-36); Mean Corpuscular Hemoglobin 37.1 pg (26-34); Mean Corpuscular Volume 105.1 fl (80-100); Mean Platelet Volume 9.6 fl (7.4-10.4); Platelet Count Result 106 k/mm3 (150-375); Red Blood Count 3.72 M/mm3 (4.6-6.20); White Blood Count 3.5 K/mm3 (4.5-10.0)
[2020-05-20 09:13] LABS: Anion Gap 11 mmol/L (8-16); Blood Urea Nitrogen 15 mg/dL (9-20); Calcium 9.1 mg/dL (8.4-10.2); Carbon Dioxide 26 mmol/L (22-30); Chloride 105 mmol/L (98-107); Estimated CRCL calculation 110 ml/min; Estimated Glomerular Filt Rate > 60; Glucose 96 mg/dL (75-110); Magnesium 1.8 mg/dL (1.6-2.3); Potassium 3.9 mmol/L (3.4-5.0); Sodium 142 mmol/L (137-145)
--- NOTE | 2020-06-29 12:44 | PM.DS ---
DS: Admitting Diagnosis Admitting Diagnosis Admitting Diagnosis: rosaura, dehydration DS: Discharge Diagnosis Discharge Diagnosis (1) Vomiting and diarrhea: Code(s): R11.10 - Vomiting, unspecified; R19.7 - Diarrhea, unspecified Status: Acute Assessment and Plan: Jamal Merino is a 44 year old male presented emergency department with a complaint of nausea or vomiting and diarrhea, patient states 1 of his neighbor brought home made macroni and cheese he and his both ate the meals however his last intake was around 7:00 p.m. and about 5 hours later patient started to have vomiting consisting of p.o. intake and bile which continued most of the night, then later patient developed diarrhea watery no blood or mucus and patient presented emergency depart further evaluation, patient was given anti emetics, most likely patient has a food poisoning, however his has no symptoms, by the time I saw the patient today patient's symptoms have resolved he was able to tolerate his breakfast and had no symptoms, however patient is severely dehydrated his BUN and creatinine elevated, will continue to hydrate the patient and monitor his kidney function once clinically stable will discharge the patient home tomorrow morning, (2) ROSAURA (acute kidney injury): Code(s): N17.9 - Acute kidney failure, unspecified Status: Acute Assessment and Plan: most likely secondary to dehydration went to continue IV fluid and monitor his kidney function (3) Dehydration: Code(s): E86.0 - Dehydration Status: Acute Assessment and Plan: most likely secondary to nausea or vomiting diarrhea and poor p.o. intake, patient is being hydrated DS: Summary Hospital Course Reason for hospitalization: Chief complaint: rosaura, dehydration Narrative: Jamal Merino is a 44 year old male presented emergency department with a complaint of nausea or vomiting and diarrhea, patient states 1 of his neighbor brought home made macroni and cheese he and his both ate the meals however his last intake was around 7:00 p.m. and about 5 hours later patient started to have vomiting consisting of p.o. intake and bile which continued most of the night, then later patient developed diarrhea watery no blood or mucus and patient presented emergency depart further evaluation, patient was given anti emetics, most likely patient has a food poisoning, however his has no symptoms, by the time I saw the patient today patient's symptoms have resolved he was able to tolerate his breakfast and had no symptoms, however patient is severely dehydrated his BUN and creatinine elevated, will continue to hydrate the patient and monitor his kidney function once clinically stable will discharge the patient home tomorrow morning, Hospital Course: Jamal Merino is a 44 year old male presented emergency department with a complaint of nausea or vomiting and diarrhea, patient states 1 of his neighbor brought home made macroni and cheese he and his both ate the meals however his last intake was around 7:00 p.m. and about 5 hours later patient started to have vomiting consisting of p.o. intake and bile which continued most of the night, then later patient developed diarrhea watery no blood or mucus and patient presented emergency depart further evaluation, patient was given anti emetics, most likely patient has a food poisoning, however his has no symptoms, by the time I saw the patient today patient's symptoms have resolved he was able to tolerate his breakfast and had no symptoms, however patient is severely dehydrated his BUN and creatinine elevated, will continue to hydrate the patient and monitor his kidney function once clinically stable will discharge the patient home tomorrow morning. Patient is clinically stable able to tolerate his diet will discharge the patient home today Status at Discharge Functional status at discharge: independen
== END 2020-05-20 11:18 | disposition home or self-care (01) ==
LOC: ANHED 23:22 → ANH3MED 05-19 00:26
PROVIDERS: Emergency Medicine; Admitting Provider Internal Medicine; Emergency Provider Emergency Medicine; PCP Family Medicine Adolescent Medicine; Visit Provider Family Medicine
DX: R11.2 Nausea with vomiting, unspecified (principal); E86.0 Dehydration; N17.9 Acute kidney failure, unspecified; R19.7 Diarrhea, unspecified; E78.5 Hyperlipidemia, unspecified; I10 Essential (primary) hypertension; Z79.899 Other long term (current) drug therapy
CPT/HCPCS: 36415; 71046; 74176; 80048; 80053; 80307; 81001; 83690; 83735; 85025; 85027; 85055; 85610; 85730; 93005; 96374; 99285; A9270; G0378; J2765; J7030

== ENCOUNTER 2020-05-20 06:52 | Outpatient (NON) | payer BC, SELFPAY ==
[2020-05-20 23:09] LABS: SARS-CoV-2 RNA PCR Negative
== END 2020-05-20 06:53 ==
PROVIDERS: PCP Family Medicine Adolescent Medicine; Visit Provider Emergency Medicine
DX: R11.10 Vomiting, unspecified (principal); R19.7 Diarrhea, unspecified; Z20.828 Contact with and (suspected) exposure to other viral communicable diseases
CPT/HCPCS: 87635; C9803; U0003

== ENCOUNTER 2020-07-20 13:12 | Day surgery (SDC) | payer BC, SELFPAY ==
[2020-07-20] VITALS (10 sets, daily range): BP systolic 110–180; BP diastolic 67–88; PULSE 62–80; RESP 10–24; TEMP 36.6; O2SAT 93–100
--- NOTE | ~2020-07-20 | CT_ITS ---
EXAMINATION: CT abdomen pelvis w con DATE: 07/20/2020 14:41 INDICATION: Right lower quadrant abdominal pain TECHNIQUE: Computed tomography (CT) of the abdomen and pelvis was performed with 100 cc Omnipaque 350 intravenous contrast. Automated exposure control and iterative reconstruction technique were employe d. Exam dose: 892.62 mGy-cm total exam DLP. COMPARISON: 05/18/2020 CT abdomen pelvis noncontrast examination 03/23/2020 abdominal ultrasound complete examination FINDINGS: The lung bases are clear of infiltrate or consolidation. Normal heart size. No pericardial or pleural effusion. The liver, gallbladder, bile ducts, spleen, pancreas, pancreatic duct and adrenal glands as well as k idneys appear normal, the exception of a small lower pole right renal cyst. No urinary tract calculus or hydroureteronephrosis. Normal caliber of the abdominal aorta. No intraperitoneal or retroperitoneal or pelvic mass lesion or adenopathy or ascites. There are prostate calcifications and mild prostate enlargement. The urinary bladder is unremarkable. There is appendiceal thickening and dilatation up to 9.7 mm diameter, appendiceal enhancement and per iappendiceal fat stranding, compatible with appendicitis. There are some small periappendiceal reacti ve lymph nodes. No bowel obstruction or intraperitoneal free air is detected. IMPRESSION: Acute appendicitis with periappendiceal inflammation; no abscess or intraperitoneal free air is detected. Dr. Younger telephoned the report to emergency room physician data analysis assistant Chelita on 07/20/2020 at 1448 hours Reviewed, dictated and finalized at [facility] Reviewed, dictated and finalized at [facility]. [employer] IMPRESSION: Acute appendicitis with periappendiceal inflammation; no abscess o r intraperitoneal free air is detected. Dr. Younger telephoned the report to emergency room physician data analysis assistant Chelita on 09/20/2019 at 1448 hours
[2020-07-20 14:15] LABS: Add Urine Microscopic? NO; Appearance Urine Clear (Clear); Basophils Percent Auto 0.2 % (0.2-1.2); Bilirubin Urine Negative (Negative); Blood Urine Negative (Negative); Color Urine Yellow (Yellow); Eosinophils Percent Auto 0.5 % (0-4.4); Glucose Urine UA Negative (Negative); Hematocrit 39.2 % (42.0-52.0); Hemoglobin 13.9 g/dL (14.0-18.0); Immature Granulocyte Absolute 0.02 K/mm3 (0.00-0.031); Immature Granulocyte Percent A 0.3 % (0-0.5); Ketones Urine Negative (Negative); Leukocyte Esterase Ur Negative LEU/UL (Negative); Lymphocytes Absolute Auto 1.25 K/mm3 (0.9-3.2); Lymphocytes Percent Auto 21.8 % (18.3-44.2); Mean Corpuscular HGB Conc 35.5 g/dl (32-36); Mean Corpuscular Volume 95.8 fl (80-100); Mean Platelet Volume 9.4 fl (7.4-10.4); Monocytes Absolute Auto 0.5 K/mm3 (0.1-0.6); Monocytes Percent Auto 8.9 % (2.6-8.5); Neutrophils Absolute Auto 3.9 K/mm3 (1.3-6.7); Neutrophils Percent Auto 68.3 % (45.5-73.1); Nitrate Urine Negative (Negative); Platelet Count Result 190 k/mm3 (150-375); Protein Urine Negative (Negative); Red Blood Count 4.09 M/mm3 (4.6-6.20); Red Cell Distribution Width 11.3 % (11.5-14.5); Specific Grav Ur 1.008 (1.001-1.035); Urobilinogen Urine Negative mg/dL (<2.0); White Blood Count 5.7 K/mm3 (4.5-10.0)
[2020-07-20 14:28] LABS: Alanine Aminotransferase 22 U/L (4-50); Alkaline Phosphatase 73 U/L (38-126); Aspartate Amino Transferase 25 U/L (17-59); Bilirubin,Total 0.6 mg/dL (0.2-1.3); Chloride 102 mmol/L (98-107); Estimated CRCL calculation 108 ml/min; Estimated Glomerular Filt Rate > 60; Lipase 76 U/L (23-300); Potassium 4.1 mmol/L (3.4-5.0); Sodium 135 mmol/L (137-145)
--- NOTE | 2020-07-20 14:29 | ED.ABDPAIN ---
HPI - Abdominal Pain General Chief Complaint: Abdominal Pain <ANATOLIY Harding Last Filed: 07/20/20 15:52> Stated Complaint: RLQ ABD PAIN X2D <ANATOLIY Harding Last Filed: 07/20/20 15:52> Time Seen by Provider: 07/20/20 14:04 <ANATOLIY Harding Last Filed: 07/20/20 15:52> Source: patient <ANATOLIY Harding Last Filed: 07/20/20 15:52> Mode of arrival: ambulatory <ANATOLIY Harding Last Filed: 07/20/20 15:52> Limitations: no limitations <ANATOLIY Harding Filed: 07/20/20 15:52> History of Present Illness HPI narrative: This is a 45-year-old male that presents the emergency department for right lower quadrant abdominal pain. Reports yesterday he noted some mid abdominal discomfort. This morning when he woke up the pain was localized to the right lower quadrant. Associated with nausea. Denies fever, vomiting, dysuria, hematuria. <ANATOLIY Harding Last Filed: 07/20/20 15:52> Related Data Home Medications: Home Medications Medication Instructions Recorded Confirmed esomeprazole magnesium [Nexium] 20 mg PO DAILY 05/18/20 05/19/20 fluticasone propionate 50 mcg INTRANASAL DAILY 05/18/20 05/19/20 atorvastatin 07/20/20 07/20/20 <ANATOLIY Harding Last Filed: 07/20/20 15:52> Allergies/Adverse Reactions: Allergies Allergy/AdvReac Type Severity Reaction Status Date / Time No Known Allergies Allergy Verified 07/20/20 13:57 <ANATOLIY Harding Last Filed: 07/20/20 15:52> Review of Systems Review of Systems: Narrative: CONSTITUTIONAL: Denies fever GASTROINTESTINAL: Reports abdominal pain, nausea. Denies vomiting, or diarrhea. GENITOURINARY: Denies dysuria or hematuria. <ANATOLIY Harding Last Filed: 07/20/20 15:52> All systems reviewed & are unremarkable except as noted in HPI and below <Chelita Wang PA-C - Last Filed: 07/20/20 15:52> [facility] Past Medical History Medical History: Medical History (Updated 07/20/20 @ 15:53 by Gamal Arguelles MD) Alcohol abuse Anxiety GERD (gastroesophageal reflux disease) HLD (hyperlipidemia) Hypertension Untreated Obesity <ANATOLIY Harding Last Filed: 07/20/20 15:52> Surgical History Surgical History: Surgical History H/O knee surgery Left knee meniscus tear repair <ANATOLIY Harding Last Filed: 07/20/20 15:52> Family History Family History: Family History (Updated 05/19/20 @ 00:06 by Ayse Live RN) Mother HLD (hyperlipidemia) Cerebrovascular accident Fatty liver Father Hypertension Malignant neoplasm of prostate Sibling Hypertension <Chelita Wang PA-C - Last Filed: 07/20/20 15:52> Social History Social History: Social History Social History: He lives with his and 3 children. They are in the process of transitioning from 1 house the other. 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 One of his children is a special needs. His sister Elvira Huddleston is a durable power county attorney for healthcare. He desires to be a full code. He said that he socially smoked but does not do it routinely. Patient stated he drinks about 4 or 5 alcoholic drinks a day. He stated he has never been through alcoholic withdrawal symptoms in the past. No illicit drug Smoking status: Never smoker Second hand tobacco smoke exposure: No Alcohol intake: current Drinks per week: 25 Substance use: never Substance use type: does not use Gender identity (if verbalized by the patient): Male Spiritual care concerns: No Agree to blood products: Yes <ANATOLIY Harding Last Filed: 07/20/20 15:52> Exam Narrative: Exam Narrative: GENERAL: Well-appearing, well-nourished, and in no acute distress. HEAD: Normocephalic, atraumatic. EYES: EOMI. CHEST: Clear to
[2020-07-20 14:56] LABS: Anion Gap 5 mmol/L (8-16); Blood Urea Nitrogen 7 mg/dL (9-20); Carbon Dioxide 28 mmol/L (22-30)
[2020-07-20 15:19] LABS: Glucose 110 mg/dL (75-110)
--- NOTE | 2020-07-20 15:51 | WPDANESEPPF ---
Anes - Initial Pre Proc Eval Procedure: Operation Date: 07/20/20 16:00 Proposed Procedures p Laparoscopic Appendectomy - Grzegorz Long DO Date/Time: 07/20/20 15:51 Pre Op Diagnosis: RLQ ABD PAIN X2D Patient Data Age: 45 Gender: M Height: 1.8 m Weight: 100 kg Last Vital Signs Temp 36.6 C 07/20/20 13:55 Pulse 76 07/20/20 13:55 Resp 16 07/20/20 13:55 BP 130/74 07/20/20 13:55 Pulse Ox 98 07/20/20 13:55 Allergies Allergy/AdvReac Type Severity Reaction Status Date / Time No Known Allergies Allergy Verified 07/20/20 13:57 Home Medications Medication Instructions Recorded Confirmed Type lisinopril 10 mg PO DAILY #30 tablet 10/25/19 05/19/20 Rx esomeprazole magnesium [Nexium] 20 mg PO DAILY 05/18/20 05/19/20 History fluticasone propionate 50 mcg INTRANASAL DAILY 05/18/20 05/19/20 History atorvastatin 07/20/20 07/20/20 History Laboratory Tests 07/20/20 07/20/20 07/20/20 14:01 14:01 14:01 WBC 5.7 K/mm3 K/mm3 (4.5-10.0) RBC 4.09 M/mm3 L M/mm3 (4.6-6.20) Hgb 13.9 g/dL L g/dL (14.0-18.0) Hct 39.2 % L % (42.0-52.0) MCV 95.8 fl fl (80-100) MCH 34.0 pg pg (26-34) MCHC 35.5 g/dl g/dl (32-36) RDW 11.3 % L % (11.5-14.5) Plt Count 190 k/mm3 D k/mm3 (150-375) MPV 9.4 fl fl (7.4-10.4) Immature Gran % (Auto) 0.3 % % (0-0.5) Neut % (Auto) 68.3 % % (45.5-73.1) Lymph % (Auto) 21.8 % % (18.3-44.2) Door % (Auto) 8.9 % H % (2.6-8.5) Eos % (Auto) 0.5 % % (0-4.4) Baso % (Auto) 0.2 % % (0.2-1.2) Lymph # (Auto) 1.25 K/mm3 K/mm3 (0.9-3.2) Door # (Auto) 0.5 K/mm3 K/mm3 (0.1-0.6) Eos # (Auto) 0.0 K/mm3 K/mm3 (0-0.3) Baso # (Auto) 0.0 K/mm3 K/mm3 (0.0-0.1) Abs Immat Gran (auto) 0.02 K/mm3 K/mm3 (0.00-0.031) Absolute Neuts (auto) 3.9 K/mm3 K/mm3 (1.3-6.7) Absolute Nucleated RBC 0.0 K/mm3 K/mm3 (0.0-0.012) Nucleated RBC % 0.0 % % (0.0-0.2) Sodium 135 mmol/L L mmol/L (137-145) Potassium 4.1 mmol/L mmol/L (3.4-5.0) Chloride 102 mmol/L mmol/L (98-107) Carbon Dioxide 28 mmol/L mmol/L (22-30) Anion Gap 5 mmol/L L mmol/L (8-16) BUN 7 mg/dL L D mg/dL (9-20) Creatinine 0.90 mg/dL mg/dL (0.7-1.3) Estim Creat Clear Calc 108 ml/min ml/min Estimated GFR > 60 (59 - ) Glucose 110 mg/dL mg/dL (75-110) Calcium 9.0 mg/dL mg/dL (8.4-10.2) Total Bilirubin 0.6 mg/dL mg/dL (0.2-1.3) AST 25 U/L U/L (17-59) ALT 22 U/L U/L (4-50) Alkaline Phosphatase 73 U/L U/L (38-126) Total Protein 7.0 g/dL g/dL (6.3-8.2) Albumin 4.0 g/dL g/dL (3.5-5.1) Lipase 76 U/L U/L (23-300) Urine Color Yellow (Yellow) Urine Appearance Clear (Clear) Urine pH 6.0 (5.0-9.0) Ur Specific [place] 1.008 (1.001-1.035) Urine Protein Negative mg/dL mg/dL (Negative) Urine Glucose (UA) Negative mg/dL mg/dL (Negative) Urine Ketones Negative mg/dL mg/dL (Negative) Ur Blood (Man) Negative (Negative) Urine Nitrate Negative (Negative) Urine Bilirubin Negative (Negative) Urine Urobilinogen Negative mg/dL mg/dL (<2.0) Leukocyte Esterase Rfl Negative JUSTIN/UL JUSTIN/UL (Negative) Patient hx anesthesia problems: none Family hx anesthesia problems: none PMFSH Past Medical History Medical History (Updated 07/20/20 @ 15:53 by Gamal Arguelles MD) Alcohol abuse Anxiety GERD (gastroesophageal reflux disease) HLD (hyperlipidemia) Hypertension Untreated Obesity Surgical History Surgical History (Reviewed 05/18/20 @ 20:37 by Consuelo Boone
--- NOTE | 2020-07-20 16:02 | PM.IMHP ---
H&P: HPI History of Present Illness Date/Time: 07/20/20 16:02 Chief complaint: RLQ ABD PAIN X2D Narrative: Jamal Merion is a 45 year old male with a history of hypertension and hyperlipidemia, who presented to the ER today with complaints of right lower quadrant abdominal pain. He reports a sudden onset of mid central abdominal pain yesterday afternoon. He reports it was intense and with no alleviating factors. The pain continued through the night and then localized to the right lower quadrant this morning. Denies fever or chills. Reports associated nausea and diarrhea today but no vomiting. The pain then brought him to the ER for further evaluation today. CT scan of the abdomen and pelvis showed uncomplicated acute appendicitis. Labs were unremarkable. Our service was contacted by the emergency room provider for the acute appendicitis. The patient was seen in the ER. He reports his RLQ abdominal pain is mild at rest, but aggravated by movement and bending over forward. He reportedly ate lunch prior to coming in today. No other complaints at this time. Review of Systems Constitutional: Constitutional: Reports as per HPI, Denies chills, Denies excessive sweating, Denies fatigue, Denies fever(s), Denies headache(s) and Denies weakness Eyes: Eyes: Denies change in vision and Denies loss of vision ENT: Reports Normal hearing present, Denies dizziness and Denies headache(s) Cardiovascular: Cardiovascular: Denies chest pain, Denies syncope, Denies leg edema, Denies lightheadedness, Denies radiating jaw, neck or arm pain and Denies dyspnea Respiratory: Respiratory: Denies cough, Denies dyspnea and Denies wheezing Gastrointestinal: Gastrointestinal: Reports as per HPI, Reports no additional gastrointestinal complaints, Reports abdominal pain (RLQ), Denies melena, Reports bloating, Denies hematochezia, Reports diarrhea, Reports nausea and Denies vomiting Genitourinary: Genitourinary: Reports no additional male genitourinary complaints, Denies dysuria and Denies urinary urgency Musculoskeletal: Musculoskeletal: Denies deformity, Denies joint swelling, Denies radiating pain into limb and Denies tingling Integumentary/Breasts: Skin/Breast: Denies pruritus, Denies wounds and Denies jaundice Neurologic: Reports Normal hearing present, Denies confusion, Denies dizziness, Denies syncope, Denies headache(s), Denies loss of vision, Denies tingling, Denies tremor(s) and Denies weakness Psychiatric: Psychiatric: Denies anxiety, Denies confusion and Denies depression Endocrine: Endocrine: Denies cold intolerance, Denies excessive sweating, Denies fatigue and Denies heat intolerance Hematologic/Lymphatic: Hematologic/Lymphatic: Denies easy bleeding and Denies easy bruising PMFSH Past Medical History Medical History Alcohol abuse History of alcohol abuse. Reportedly 3 months sober. Anxiety GERD (gastroesophageal reflux disease) HLD (hyperlipidemia) Hypertension Surgical History Surgical History H/O knee surgery Left knee meniscus tear repair Family History Family History Mother HLD (hyperlipidemia) Cerebrovascular accident Fatty liver Father Hypertension Malignant neoplasm of prostate Sibling Hypertension Social History Social History Social History: He lives with his and 3 children. One of his children is a special needs. He is currently unemployed. His sister Elvira Huddleston is a durable power trial attorney for healthcare. Smoking status: Never smoker Second hand tobacco smoke exposure: No Alcohol intake: former Alcohol use details: 63 days sober. Previous alcohol abuse. Substance use: never Substance use type: does not use Living arrangements: with family Occupation/Education: unemployed
[2020-07-20] MEDS: LACTATED RINGERS 1,000 ML 30 ML IV CONT ×2 (16:10→17:17)
--- NOTE | 2020-07-20 16:12 | PM.IMHP ---
H&P: HPI History of Present Illness Date/Time: 07/20/20 16:12 Chief complaint: RLQ ABD PAIN X2D Narrative: Jamal Merino is a 45 year old male who presented with right lower quadrant pain that started yesterday. He does state that he has had some pains off and on for the past couple months. But it became more symptomatic and severe yesterday. He denies any fevers or chills. Denies any change in bowel habits. He did eat lunch and states that he was able to keep this down fine. Review of Systems Review of Systems: All systems reviewed & are unremarkable except as noted in HPI and below Eyes: Eyes: Denies change in vision ENT: Denies hearing loss, Denies neck pain and Denies sore throat Cardiovascular: Cardiovascular: Denies chest pain and Denies dyspnea Respiratory: Respiratory: Denies cough, Denies dyspnea and Denies wheezing Genitourinary: Genitourinary: Denies hematuria and Denies dysuria Musculoskeletal: Musculoskeletal: Denies arthralgias, Denies joint swelling and Denies neck pain Allergic/Immunologic: Allergic/Immunologic: Denies wheezing PMFSH Past Medical History Medical History Alcohol abuse History of alcohol abuse. Reportedly 3 months sober. Anxiety GERD (gastroesophageal reflux disease) HLD (hyperlipidemia) Hypertension Surgical History Surgical History H/O knee surgery Left knee meniscus tear repair Family History Family History Mother HLD (hyperlipidemia) Cerebrovascular accident Fatty liver Father Hypertension Malignant neoplasm of prostate Sibling Hypertension Social History Social History Social History: He lives with his and 3 children. One of his children is a special needs. He is currently unemployed. His sister Elvira Huddleston is a durable power assistant prosecuting attorney for healthcare. Smoking status: Never smoker Second hand tobacco smoke exposure: No Alcohol intake: former Alcohol use details: 63 days sober. Previous alcohol abuse. Substance use: never Substance use type: does not use Living arrangements: with family Occupation/Education: unemployed Gender identity (if verbalized by the patient): Male Spiritual care concerns: No Agree to blood products: Yes Meds Home Medications and Allergies Home Medications Medication Instructions Recorded Confirmed Type lisinopril 10 mg PO DAILY #30 tablet 10/25/19 05/19/20 Rx esomeprazole magnesium [Nexium] 20 mg PO DAILY 05/18/20 05/19/20 History fluticasone propionate 50 mcg INTRANASAL DAILY 05/18/20 05/19/20 History atorvastatin 07/20/20 07/20/20 History Allergies Allergy/AdvReac Type Severity Reaction Status Date / Time No Known Allergies Allergy Verified 07/20/20 13:57 Vital Signs Vital Signs - 24 hr 07/20/20 13:55 Temperature 36.6 C Pulse Rate 76 Respiratory Rate 16 Blood Pressure 130/74 Pulse Oximetry 98 Exam Const: General: alert; No acute distress Orientation/consciousness: patient oriented x3 Limitations: no limitations HENMT: Head: normocephalic and atraumatic Ears: hearing grossly normal bilaterally General nose exam: Normal external nose present and Normal nares present Mouth: Yes Normal oral and palatal mucosa present and Yes moist mucous membranes Eyes: General: appearance normal, both eyes and all related structures Conjunctivae: conjunctivae normal Sclera: sclerae normal Pupils: Equal, round and reactive pupils present EOM: EOMs intact bilaterally Neck: Neck: normal visual inspection, full ROM, no lymphadenopathy, supple and no JVD Lymphatic: no lymphadenopathy noted Chest: Chest palpation & inspection: normal inspection of the chest Resp: Effort & Inspection: normal respiratory effort and able to speak in complete sentence
--- NOTE | 2020-07-20 16:15 | WPDHPUPDATE1 ---
History and Physical Update Update Date/Time: 07/20/20 16:15 History and Physical has been reviewed, including an updated exam of the patient. There are NO changes in the patient's condition. Risks, benefits, and alternatives have been discussed and questions answered. Patient agrees to proceed with procedure.
--- NOTE | 2020-07-20 17:07 | PM.PROC ---
Procedure Note - Detailed Date of procedure: 07/20/20 Pre-op diagnosis: Acute appendicitis Post-op diagnosis: same Procedure performed: Laparoscopic Appendectomy Description of procedure: Procedure as well as risks, benefits, and alternatives were explained to the patient. The patient agreed to proceed. Written consent was obtained and placed in chart prior to procedure. The patient was brought back to surgical suite. He was placed supine on operating table. Time-out was done to confirm the patient and procedure. The patient was then intubated by the Anesthesia Department. His abdomen was prepped and draped in sterile fashion using chlorhexidine prep. A 12 mm incision was made at the inferior portion of the umbilicus. Blunt dissection was carried out down to the linea alba. The linea alba was then incised using a 15 blade scalpel. Then bluntly entered into the peritoneal cavity. A 12 mm trocar was then inserted, and carbon dioxide insufflation was used to create a pneumoperitoneum. The camera was inserted and the abdomen was inspected. No immediate abnormalities were identified. The patient was then placed in slight Trendelenburg position and rotated to the left. A 5 mm incision was made in the suprapubic region in midline and a 5 mm trocar was inserted under direct visualization. A 5 mm incision was made in the left lower quadrant and a 5 mm trocar was inserted under direct visualization. The right lower quadrant was carefully inspected. The cecum was identified and then this was traced back to the appendix. The appendix was identified and grasped at the mesoappendix and lifted anteriorly. Careful blunt dissection was carried out at the base of the appendix through the mesoappendix using a [place] grasper. An Endo-JON 45 mm blue load stapler was then advanced across the base of the appendix and clamped and fired. A white reload was then clamped across the mesoappendix and fired. This freed up our appendix completely. It was then placed in an EndoCatch bag and removed through the left lower quadrant port. The staple lines were then inspected. Hemostasis appeared adequate and the staple lines appeared secure. The area was then irrigated with sterile saline. The pelvis was then carefully inspected and irrigated with sterile saline as well and the remainder of the abdomen was carefully inspected. The patient was then flattened out in bed. One final inspection was made around the abdominal cavity and no other abnormalities were seen. The ports were then removed under direct visualization. The camera was removed and the pneumoperitoneum was released. The fascia of the umbilical incision was reapproximated using an 0 Vicryl [id number] suture. 0.5% bupivacaine with epinephrine was infiltrated locally around each of the incisions. The skin of the incisions was then approximated using 4-0 Monocryl subcuticular suture and Exofin glue was applied on top. The patient was then awakened from anesthesia, extubated, and transferred to Recovery. Anesthesia: GETA and local (0.5% bupivicaine with epi) Surgeon: Grzegorz Long DO Pathology: yes (Appendix) Complications: No immediate complications Condition: stable Disposition: same day Findings: This is a 45-year-old man who presented to the emergency department with right lower quadrant pain that began yesterday. Pain began as vague cramping pain but then localized to the right lower quadrant. He denied any fevers or any other associated symptoms. In the emergency department, a CT of his abdomen and pelvis showed evidence of acute appendicitis. Decision was made to proceed with urgent laparoscopic appendectomy, possible open. Laparoscopic appendectomy was performed. The appendix was in a slightly retrocecal location and had some evidence of inflammation but no evidence of perforation or abscess. The base of the appendix appeared healthy and viable. The appendix was removed and sent to the lab
[2020-07-20] MEDS: fentaNYL CITRATE INJ (*CRX) 100 MCG/2 ML VIAL 25 MCG IV PUSH ×3 (18:06→18:20)
[2020-07-20] MEDS: oxyCODONE HCL (*CRX) 5 MG TAB IR PO (18:48)
[2020-07-20] MEDS: KETOROLAC 30 MG/ML VIAL (*BKC) IV PUSH (19:20)
== END 2020-07-20 19:42 | disposition home or self-care (01) ==
LOC: ANHED 15:41 → ANHSURGERY 15:51
PROVIDERS: Emergency Provider Emergency Medicine; PCP Family Medicine Adolescent Medicine; Visit Provider Surgery
PROC: 0DTJ4ZZ Resection of Appendix, Percutaneous Endoscopic Approach (ICD-10-PCS; CPT 44970; principal; 2020-07-20 16:00)
DX: K35.30 Acute appendicitis with localized peritonitis, without perforation or gangrene (principal); E78.5 Hyperlipidemia, unspecified; K21.9 Gastro-esophageal reflux disease without esophagitis; I10 Essential (primary) hypertension; F41.9 Anxiety disorder, unspecified
CPT/HCPCS: 44970; 36415; 74177; 80053; 81003; 83690; 85025; 88304; 96374; 99285; A9270; J0330; J1170; J1885; J2250; J2405; J2543; J2704; J2710; J3010; J7030; J7120; Q9967

== ENCOUNTER 2020-07-24 06:57 | Outpatient (NON) | payer BC, SELFPAY ==
[2020-07-24 18:46] LABS: SARS-CoV-2 RNA PCR Positive
== END 2020-07-24 06:58 ==
LOC: ANHCOVIDDT 06:58
PROVIDERS: Visit Provider Family Medicine Adolescent Medicine
DX: U07.1 COVID-19 (principal)
CPT/HCPCS: 87635; C9803; U0003

== ENCOUNTER 2020-07-26 10:29 | Emergency (ER) | payer BC, SELFPAY ==
--- NOTE | ~2020-07-26 | CT_ITS ---
EXAMINATION: CTA chest PE protocol DATE: 07/26/2020 12:57 INDICATION: Chest pain, shortness of breath and elevated d-dimer. TECHNIQUE: Computed tomography (CT) pulmonary angiogram of the chest was performed with 100 mL Omnipa que-350 intravenous contrast. Additional 3D reconstructions utilizing coronal maximum intensity proje ction (MIP) were performed. Automated exposure control and iterative reconstruction technique were em ployed. The dose-length product was 457.97 mGy-cm. COMPARISON: None FINDINGS: Good contrast opacification of the pulmonary arteries. There is moderate streak artifact from dense c ontrast in the superior vena cava and right atrium. Mild scattered respiratory motion artifact. Toget her this mildly decreases sensitivity and specificity in some of the smaller subsegmental pulmonary a rteries. No definitive pulmonary embolism. Patchy groundglass opacities with dependent predominance i n the lingula and bilateral upper and lower lobes with appearance favoring computed pneumonia over pu lmonary edema. No pleural effusion. Heart size is normal. No pericardial effusion. Normal caliber tho racic aorta with no dissection. Mild likely reactive bilateral hilar lymphadenopathy. Visualized uppe r abdomen is unremarkable. Mild likely physiologic anterior wedging at T10-T12. IMPRESSION: 1. No definite pulmonary embolism with sensitivity decreased in some of the smaller subsegmental pulm onary arteries due to combination of some some streak and motion artifact. 2. Scattered patchy groundglass opacities in both lungs with dependent predominance. Appearance favor s COVID pneumonia over pulmonary edema. Reviewed, dictated and finalized at location A. LE GRINDER FEEDER IMPRESSION: 1. No definite pulmonary embolism with sensitivity decreased in some of the sma ller subsegmental pulmonary arteries due to combination of some some streak and motion artifact. 2. Scattered patchy groundglass opacities in both lungs with dependent predomin ance. Appearance favors COVID pneumonia over pulmonary edema.
--- NOTE | ~2020-07-26 | XR_ITS ---
EXAMINATION: XR chest 1V portable DATE: 07/26/2020 11:50 INDICATION: Shortness of breath. COVID positive. TECHNIQUE: frontal view of the chest was obtained. COMPARISON: Chest radiograph dated 05/18/2020 FINDINGS: Patchy airspace opacities in the bilateral lower lung zones. No pleural effusion or pneumothorax. The cardiomediastinal silhouette is normal. IMPRESSION: 1. Patchy lung disease the bilateral lower lungs concerning for pneumonia. Reviewed, dictated and finalized at location A. LITATIVE INTERVENTIONIST
[2020-07-26 10:40] VITALS: BP 116/51; PULSE 73; RESP 22; TEMP 36.6; O2SAT 93
[2020-07-26 10:51] VITALS: BP 118/61; PULSE 69; RESP 17; TEMP 37.4; O2SAT 95
--- NOTE | 2020-07-26 11:15 | ECG_ITS ---
Measurements Intervals [place] Rate: 71 P: 29 CA: 209 QRS: -12 QRSD: 102 T: 8 QT: 350 QTc: 383 Interpretive Statements SINUS RHYTHM INCOMPLETE RIGHT BUNDLE BRANCH BLOCK BORDERLINE T WAVE ABNORMALITY- INFERIOR LEADS BASELINE ARTIFACT- I, III, AVR, AVL, AVF, V1-V6 BORDERLINE ECG Electronically Signed On 07-26-2020 13:38:01 [employer] by Ashwin Richard D.O.
--- NOTE | 2020-07-26 11:18 | ED.URI ---
HPI - URI/Sore Throat General Chief Complaint: Upper Respiratory Infection Stated Complaint: COVID SYMPTOMS TESTED 07/24/2020 Time Seen by Provider: 07/26/20 10:47 Source: patient Mode of arrival: ambulatory Limitations: no limitations History of Present Illness HPI Narrative: This is a 45-year-old male that presents the emergency department for shortness of breath x4 days. Associated with chest tightness, congestion, cough, and fever. Reports he had an outpatient Covid swab that recently came back positive. I saw patient on Monday and was taken to the OR for an appendectomy. Reports his incision sites are healing well. Reports some mild abdominal soreness due to all of the coughing. Reports diarrhea. Denies nausea or vomiting. Related Data Home Medications Medication Instructions Recorded Confirmed esomeprazole magnesium [Nexium] 20 mg PO DAILY 05/18/20 05/19/20 fluticasone propionate 50 mcg INTRANASAL DAILY 05/18/20 05/19/20 atorvastatin [Lipitor] 20 mg PO DAILY 07/20/20 07/20/20 lisinopril [Zestril] 10 mg PO DAILY 07/20/20 07/20/20 Allergies Allergy/AdvReac Type Severity Reaction Status Date / Time No Known Allergies Allergy Verified 07/26/20 10:56 Review of Systems Review of Systems: Narrative: CONSTITUTIONAL: Reports fever ENT: Reports rhinorrhea, congestion CARDIOVASCULAR: Reports chest pain. Denies edema. RESPIRATORY: Reports cough and dyspnea. GASTROINTESTINAL: Reports abdominal pain and diarrhea. Denies nausea, vomiting GENITOURINARY: Denies dysuria All systems reviewed & are unremarkable except as noted in HPI and below PMFSH Past Medical History Medical History Alcohol abuse History of alcohol abuse. Reportedly 3 months sober. Anxiety GERD (gastroesophageal reflux disease) HLD (hyperlipidemia) Hypertension Surgical History Surgical History H/O knee surgery Left knee meniscus tear repair Family History Family History Mother HLD (hyperlipidemia) Cerebrovascular accident Fatty liver Father Hypertension Malignant neoplasm of prostate Sibling Hypertension Social History Social History Social History: He lives with his and 3 children. One of his children is a special needs. He is currently unemployed. His sister Elvira Huddleston is a durable power tow motor operator for healthcare. Smoking status: Never smoker Second hand tobacco smoke exposure: No Alcohol intake: former Substance use: never Substance use type: does not use Gender identity (if verbalized by the patient): Male Sexual Orientation (if Verbalized by the Patient): Straight or Heterosexual Spiritual care concerns: No Agree to blood products: Yes Exam Narrative: Exam Narrative: GENERAL: Well-appearing, well-nourished, and in no acute distress. HEAD: Normocephalic, atraumatic. EYES: EOMI. ENT: Nares clear, no rhinorrhea or epistaxis. Mucous membranes moist. Oropharynx without tonsillar hypertrophy exudate or other lesions. Bilateral TMs pearly ortiz non-bulging NECK: Supple. No adenopathy or masses. CHEST: Clear to auscultation. No respiratory distress. No wheezes rales or rhonchi HEART: Regular rate and rhythm. No murmur heard. Normal peripheral pulses. ABDOMEN: Soft, nontender, nondistended, normal active bowel sounds. All incision sites are healing, without surrounding erythema or abnormal drainage EXTREMITIES: Normal range of motion. No edema. SKIN: Warm, dry, no rash. NEURO: No focal deficits. Alert and oriented x3. PSYCH: Normal mood and affect Course Consultations Consultation #1: Spoke with patient's primary about work-up. Date: 07/26/20 Time: 14:03 Vital Signs Vital signs: Vital Signs Temperature 97.9 F 07/26/20 10:40 Pulse Rate 73 07/26/20 10:40 Respirat
[2020-07-26 11:32] LABS: Basophils Percent Auto 0.3 % (0.2-1.2); Hematocrit 41.3 % (42.0-52.0); Hemoglobin 14.9 g/dL (14.0-18.0); Immature Granulocyte Absolute 0.02 K/mm3 (0.00-0.031); Immature Granulocyte Percent A 0.6 % (0-0.5); Lymphocytes Absolute Auto 0.67 K/mm3 (0.9-3.2); Lymphocytes Percent Auto 19.2 % (18.3-44.2); Mean Corpuscular HGB Conc 36.1 g/dl (32-36); Mean Corpuscular Hemoglobin 33.3 pg (26-34); Mean Corpuscular Volume 92.4 fl (80-100); Mean Platelet Volume 9.6 fl (7.4-10.4); Monocytes Absolute Auto 0.2 K/mm3 (0.1-0.6); Neutrophils Absolute Auto 2.6 K/mm3 (1.3-6.7); Neutrophils Percent Auto 73.9 % (45.5-73.1); Platelet Count Result 165 k/mm3 (150-375); Red Blood Count 4.47 M/mm3 (4.6-6.20); Red Cell Distribution Width 10.8 % (11.5-14.5); White Blood Count 3.5 K/mm3 (4.5-10.0)
[2020-07-26 11:42] LABS: INR 1.1; Partial Thromboplastin Time 32.8 SECONDS (22.3-36.8); Prothrombin Time 14.7 Seconds (11.1-14.7)
[2020-07-26 11:43] LABS: Lactic Acid Reflex 1.4 mmol/L (0.7-2.1)
[2020-07-26 12:03] LABS: Alanine Aminotransferase 18 U/L (4-50); Albumin Level 4.1 g/dL (3.5-5.1); Alkaline Phosphatase 75 U/L (38-126); Anion Gap 8 mmol/L (8-16); Aspartate Amino Transferase 37 U/L (17-59); Bilirubin,Total 0.5 mg/dL (0.2-1.3); Blood Urea Nitrogen 9 mg/dL (9-20); Calcium 8.9 mg/dL (8.4-10.2); Carbon Dioxide 28 mmol/L (22-30); Chloride 96 mmol/L (98-107); Estimated CRCL calculation 83 ml/min; Estimated Glomerular Filt Rate > 60; Glucose 119 mg/dL (75-110); Lactate Dehydrogenase 940 U/L (313-618); Potassium 4.3 mmol/L (3.4-5.0); Sodium 132 mmol/L (137-145); Troponin I < 0.012 ng/mL (0.000-0.034)
[2020-07-26 12:36] VITALS: BP 119/57; PULSE 68; RESP 22; TEMP 39.1; O2SAT 96
[2020-07-26] MEDS: SODIUM CHLORIDE 0.9% IV 500 ML 999 ML IV CONT (12:37)
[2020-07-26 13:07] VITALS: TEMP 37.7
[2020-07-26 13:10] VITALS: BP 103/58; PULSE 94; RESP 18; TEMP 37.7; O2SAT 94
[2020-07-26 14:23] VITALS: BP 97/58; PULSE 58; RESP 18; O2SAT 93
== END 2020-07-26 14:27 | disposition home or self-care (01) ==
PROVIDERS: Physician Assistant; Emergency Provider Emergency Medicine; PCP Family Medicine Adolescent Medicine
DX: U07.1 COVID-19 (principal); J12.89 Other viral pneumonia; K21.9 Gastro-esophageal reflux disease without esophagitis; E78.5 Hyperlipidemia, unspecified; I10 Essential (primary) hypertension; Z98.890 Other specified postprocedural states; I45.10 Unspecified right bundle-branch block; R94.31 Abnormal electrocardiogram [ECG] [EKG]
CPT/HCPCS: 36415; 71045; 71275; 80053; 82728; 83605; 83615; 84484; 85025; 85380; 85610; 85730; 93005; 96365; 99284; J0131; J7040; Q9967

== ENCOUNTER → 2020-09-04 09:50 | Outpatient (CLI) | payer BC, SELFPAY ==
--- NOTE | ~2020-09-04 | XR_ITS ---
EXAMINATION: XR shoulder LT min 2V DATE: 09/04/2020 10:10 INDICATION: Left shoulder pain TECHNIQUE: AP internally and externally rotated, AP oblique externally rotated and axillary views of the left shoulder were obtained. COMPARISON: None FINDINGS: Normal alignment. No fracture. Glenohumeral joint is normal. Acromioclavicular joint is normal. Soft tissues are unremarkable. Visualized portions of the lungs are clear. Heart size is normal. IMPRESSION: Negative left shoulder radiographs. Reviewed, dictated and finalized at location A. ORDER DETAILER
== END ==
PROVIDERS: PCP Family Medicine Adolescent Medicine; Visit Provider Family Medicine Adolescent Medicine
DX: M25.512 Pain in left shoulder (principal)
CPT/HCPCS: 73030

== ENCOUNTER → 2020-10-24 08:13 | Outpatient (CLI) | payer BC, SELFPAY ==
--- NOTE | ~2020-10-24 | MR_ITS ---
. EXAMINATION: MR shoulder LT wo con DATE: 10/24/2020 09:11 INDICATION: Tendinitis of left rotator cuff. Anterior left shoulder pain. TECHNIQUE: Magnetic resonance imaging (MRI) of the left shoulder was performed without intravenous co ntrast. Sequences included axial PD-weighted FS FSE, coronal oblique PD-weighted FS FSE and T2-weight ed FS FSE, and sagittal oblique T2-weighted FS FSE and T1-weighted FSE. COMPARISON: Left shoulder radiographs 09/04/2020 FINDINGS: Coracoacromial arch: The acromion undersurface is curved in morphology (type II). There is moderate acromioclavicular join t osteoarthritis including inferiorly directed osteophytes. There is mild subacromial/subdeltoid burs itis. Rotator cuff: There is moderate supraspinatus and infraspinatus tendinopathy. Teres minor tendon is normal. There i s mild subscapularis tendinopathy. No tear. There is no asymmetric fatty atrophy of the rotator cuff muscle bellies. Biceps tendon and glenoid labrum: Biceps tendon is in bicipital groove. Intra-articular biceps tendon is normal. Glenoid labrum is norm al. Fluid: There is no glenohumeral joint effusion. Bones/cartilage: Glenoid cartilage is normal. Humeral head cartilage is normal. IMPRESSION: 1. Moderate rotator cuff tendinopathy. No tear. 2. Moderate acromioclavicular joint osteoarthritis. 3. Mild subacromial/subdeltoid bursitis. Reviewed, dictated and finalized at location A. CONTROL INSTRUCTOR
== END ==
DX: M75.82 Other shoulder lesions, left shoulder (principal); M19.012 Primary osteoarthritis, left shoulder; M75.52 Bursitis of left shoulder
CPT/HCPCS: 73221

== ENCOUNTER 2022-05-19 01:45 | Day surgery (SDC) | payer BC, SELFPAY ==
[2022-04-29 13:52] VITALS: BMI 29.2
[2022-05-19 06:19] VITALS: BP 119/44; PULSE 61; RESP 16; TEMP 36.2; O2SAT 100; BMI 29.4
[2022-05-19] MEDS: LACTATED RINGERS 1,000 ML 150 ML IV CONT (06:32)
--- NOTE | 2022-05-19 07:09 | WPDANESEPPF ---
Anes - Initial Pre Proc Eval Procedure: Operation Date: 05/19/22 07:30 Proposed Procedures p Esophagogastroduodenoscopy & Screening Colonoscopy - Pawel Merino MD Date/Time: 05/19/22 07:09 Surgeon: Pawel Merino MD Pre Op Diagnosis: neoplasm screening, dysphagia Patient Data Age: 46 Gender: M Height: 1.8 m Weight: 95.7 kg Last Vital Signs Temp 97.2 F L 05/19/22 06:19 Pulse 61 05/19/22 06:19 Resp 16 05/19/22 06:19 BP 119/44 L 05/19/22 06:19 Pulse Ox 100 05/19/22 06:19 O2 Del Method Room Air 05/19/22 06:19 Allergies Allergy/AdvReac Type Severity Reaction Status Date / Time No Known Allergies Allergy Verified 05/19/22 06:18 Home Medications Medication Instructions Recorded Confirmed Type fluticasone propionate 50 2 spray intranasal DAILY #16 grams 04/05/22 05/19/22 Rx mcg/actuation nasal spray,suspension (Flonase Allergy Relief) omeprazole 20 mg capsule,delayed 20 mg PO DAILY #90 caps 04/05/22 05/19/22 Rx release Patient hx anesthesia problems: none Family hx anesthesia problems: none Results Review: All pre-operative results and documents have been reviewed as part of the pre-operative evaluation. [facility] Past Medical History Medical History Alcohol abuse History of alcohol abuse. Reportedly 3 months sober. Anxiety GERD (gastroesophageal reflux disease) Hepatic steatosis HLD (hyperlipidemia) Hypertension Pneumonia due to 2019 novel coronavirus Surgical History Surgical History H/O knee surgery Left knee meniscus tear repair History of laparoscopic appendectomy 07/20/2020 Family History Family History Mother HLD (hyperlipidemia) Cerebrovascular accident Fatty liver Father Hypertension Malignant neoplasm of prostate Sibling Hypertension Social History Social History Social History: He lives with his and 3 children. One of his children is a special needs. He is currently unemployed. His sister Elvira Huddleston is a durable power trial attorney for healthcare. Smoking status: Never smoker Second hand tobacco smoke exposure: No Alcohol intake: former Alcohol use details: former ETOH abuse Substance use: never Substance use type: does not use Living arrangements: with family Gender identity (if verbalized by the patient): Male Sexual Orientation (if Verbalized by the Patient): Straight or Heterosexual Spiritual care concerns: No Agree to blood products: Yes Anes - Eval Final PreProcedure Day of Procedure 05/19/22 07:09 Patient weight: normal Heart: regular rate and rhythm Lungs: clear to auscultation Airway: Mallampati scale class II Neurological: alert and oriented Last oral intake: >/= 8 hours ASA classification: II Emergent: no Anesthetic plan: proceed Anesthesia type and monitoring: general GIVS and standard monitoring Results Review: All pre-operative results and documents have been reviewed as part of the pre-operative evaluation. Informed Consent: The patient's anesthetic plan and its attendant risks and benefits were discussed with the patient/family/POA. Questions were solicited and answers provided to the satisfaction of the patient/family/POA.
--- NOTE | 2022-05-19 07:32 | WPDHPUPDATE1 ---
History and Physical Update Update Date/Time: 05/19/22 07:32 History and Physical has been reviewed, including an updated exam of the patient. There are NO changes in the patient's condition. Risks, benefits, and alternatives have been discussed and questions answered. Patient agrees to proceed with procedure.
[2022-05-19] MEDS: BENZOCAINE (*SP) 60 ML SPRAY CAN (HURRICAINE) 1 SPRAY MUCOUS MEM (07:39)
--- NOTE | 2022-05-19 07:52 | SUR.OPER ---
EGD end [id number] COLONOSCOPY START [id number]
[2022-05-19 08:11] VITALS: BP 93/60; PULSE 51; RESP 18; O2SAT 97
[2022-05-19 08:21] VITALS: BP 110/51; PULSE 52; RESP 17; O2SAT 98
[2022-05-19 08:31] VITALS: BP 104/59; PULSE 50; RESP 15; O2SAT 99
== END 2022-05-19 08:38 | disposition home or self-care (01) ==
PROVIDERS: Visit Provider Internal Medicine Gastroenterology
PROC: 0DJ08ZZ Inspection of Upper Intestinal Tract, Via Natural or Artificial Opening Endoscopic (ICD-10-PCS; CPT 43235; principal; 2022-05-19 07:30)
DX: Z12.11 Encounter for screening for malignant neoplasm of colon (principal); K57.30 Diverticulosis of large intestine without perforation or abscess without bleeding; K63.5 Polyp of colon; Q39.4 Esophageal web; K21.00 Gastro-esophageal reflux disease with esophagitis, without bleeding
CPT/HCPCS: 45385; 43450; 43239; 87081; 88305; J2704; J7120

== ENCOUNTER 2023-07-27 02:23 | Emergency (ER) | payer BC, SELFPAY ==
[2023-07-27] VITALS (7 sets, daily range): BP systolic 112–124; BP diastolic 72–76; PULSE 35–69; RESP 12–16; TEMP 36.4; O2SAT 96–100
--- NOTE | ~2023-07-27 | XR_ITS ---
Portable chest x-ray Comparison: 07/26/2020 Clinical History: Chest pain Findings: Lungs are clear, without focal consolidation or pleural effusion. Cardiomediastinal silho uette is stable. Bones and soft tissues are unremarkable. Impression: Normal chest. Reviewed, dictated and finalized at [facility]. ANALYST Impression: Normal chest.
--- NOTE | 2023-07-27 02:31 | ECG_ITS ---
Measurements Intervals [place] Rate: 38 P: 36 TN: 246 QRS: -15 QRSD: 121 T: 9 QT: 482 QTc: 386 Interpretive Statements SINUS BRADYCARDIA WITH FIRST DEGREE AV BLOCK MODERATE INTRAVENTRICULAR CONDUCTION DELAY [110+ ms QRS DURATION] ABNORMAL ECG COMPARED TO ECG 07/26/2020 11:16:43 SINUS BRADYCARDIA NOW PRESENT FIRST DEGREE AV BLOCK NOW PRESENT INTRAVENTRICULAR CONDUCTION DELAY NOW PRESENT Electronically Signed On 07-27-2023 14:00:45 BUSINESS INSIGHT AND ANALYTICS MANAGER by Elkin Mishra M.D.
--- NOTE | 2023-07-27 02:41 | PC.NURSE ---
324 mg Aspirin not given, was given prior to arrival by EMS.
[2023-07-27 02:45] LABS: Basophils Percent Auto 0.4 % (0.2-1.2); Eosinophils Absolute Auto 0.1 K/mm3 (0-0.3); Eosinophils Percent Auto 2.3 % (0-4.4); Hematocrit 41.2 % (42.0-52.0); Hemoglobin 14.6 g/dL (14.0-18.0); Immature Granulocyte Absolute 0.01 K/mm3 (0.00-0.031); Immature Granulocyte Percent A 0.2 % (0-0.5); Lymphocytes Percent Auto 55.4 % (18.3-44.2); Mean Corpuscular HGB Conc 35.4 g/dl (32-36); Mean Corpuscular Hemoglobin 32.2 pg (26-34); Mean Corpuscular Volume 90.9 fl (80-100); Mean Platelet Volume 8.9 fl (7.4-10.4); Monocytes Absolute Auto 0.3 K/mm3 (0.1-0.6); Neutrophils Absolute Auto 1.6 K/mm3 (1.3-6.7); Neutrophils Percent Auto 34.7 % (45.5-73.1); Platelet Count Result 196 k/mm3 (150-375); Red Blood Count 4.53 M/mm3 (4.6-6.20); Red Cell Distribution Width 12.2 % (11.5-14.5); White Blood Count 4.7 K/mm3 (4.5-10.0)
[2023-07-27] MEDS: ONDANSETRON INJ 4 MG/2 ML VIAL IV PUSH ×2 (02:48→04:04)
[2023-07-27] MEDS: BELLADONNA ALK/PHENOB ELIX 10 ML, MAG HYDROX/ALUMINUM HYD/SIMETH 30 ML, LIDOCAINE HCL 2... PO (02:48)
[2023-07-27 02:55] LABS: Prothrombin Time 13.8 Seconds (11.1-14.7)
[2023-07-27 02:56] LABS: Partial Thromboplastin Time 25.7 SECONDS (22.3-36.8)
[2023-07-27 02:57] LABS: Lactic Acid Reflex 2.3 mmol/L (0.7-2.0)
[2023-07-27 03:07] LABS: Troponin I < 0.012 ng/mL (0.000-0.034)
[2023-07-27 03:16] LABS: Alanine Aminotransferase 71 U/L (6-50); Albumin Level 4.2 g/dL (3.5-5.1); Alkaline Phosphatase 64 U/L (38-126); Anion Gap 9 mmol/L (8-16); Aspartate Amino Transferase 93 U/L (17-59); Bilirubin,Total 0.6 mg/dL (0.2-1.3); Blood Urea Nitrogen 19 mg/dL (9-20); Calcium 9.2 mg/dL (8.4-10.2); Carbon Dioxide 26 mmol/L (22-30); Chloride 102 mmol/L (98-107); Estimated CRCL calculation 77 ml/min; Estimated Glomerular Filt Rate > 60; Glucose 170 mg/dL (65-110); Lipase 142 U/L (23-300); Potassium 3.1 mmol/L (3.4-5.0); Sodium 137 mmol/L (137-145)
--- NOTE | 2023-07-27 03:59 | ED.GENADULT ---
HPI - General Adult General Chief complaint: Chest Pain Stated complaint: CHEST PAIN Time Seen by Provider: 07/27/23 02:30 History of Present Illness HPI narrative: patient 48-year-old gentleman presents emergency department with chief complaint of chest discomfort. The patient reports he has history of reflux and reports this evening he started having discomfort in his mid chest patient states that radiated to his back and this was different than his typical episodes patient states he took some Tums and drank some water and did not have improvement in his symptoms. The patient states he decided to come to the emergency department for evaluation since the symptoms are not abating. The patient reports he has had a stress test in the past that was negative. Related Data Allergies Allergy/AdvReac Type Severity Reaction Status Date / Time No Known Allergies Allergy Verified 07/27/23 02:35 Review of Systems Review of Systems: A 10 system review of systems was completed on the patient and is negative except for what is stated in the HPI. Nursing and ancillary documentation was reviewed. [facility] Past Medical History Medical History Alcohol abuse History of alcohol abuse. Reportedly 3 months sober. Anxiety GERD (gastroesophageal reflux disease) Hepatic steatosis HLD (hyperlipidemia) Hypertension Pneumonia due to 2019 novel coronavirus Surgical History Surgical History H/O knee surgery Left knee meniscus tear repair History of laparoscopic appendectomy 07/20/2020 Family History Family History Mother HLD (hyperlipidemia) Cerebrovascular accident Fatty liver Father Hypertension Malignant neoplasm of prostate Sibling Hypertension Social History Social History Social History: He lives with his and 3 children. One of his children is a special needs. He is currently unemployed. His sister Elvira Huddleston is a durable power cigarette carton sealer for healthcare. Smoking status: Never smoker Second hand tobacco smoke exposure: No Alcohol intake: former Alcohol use details: former ETOH abuse Substance use: never Substance use type: does not use Living arrangements: with family Occupation/Education: occupation Gender identity (if verbalized by the patient): Male Sexual Orientation (if Verbalized by the Patient): Straight or Heterosexual Spiritual care concerns: No Agree to blood products: Yes Exam Narrative: GENERAL: Well-appearing, well-nourished, and in no acute distress. HEAD: Normocephalic, atraumatic. EYES: PERRLA and EOMI. ENT: Nares clear, no rhinorrhea or epistaxis. Mucous membranes moist. NECK: Supple. CHEST: Clear to auscultation. No respiratory distress. HEART: Regular rate and rhythm. No murmur heard. Normal peripheral pulses. ABDOMEN: Soft, nontender, nondistended, normal active bowel sounds. EXTREMITIES: Normal range of motion. No edema. SKIN: Warm, dry, no rash. NEURO: No focal deficits. Alert and oriented x3. PSYCH: Normal mood and affect. Course Vital Signs Vital signs: Vital Signs Temperature 36.4 C L 07/27/23 02:24 Pulse Rate 41 L 07/27/23 02:24 Respiratory Rate 12 07/27/23 02:24 Blood Pressure 112/72 07/27/23 02:24 Pulse Oximetry 99 07/27/23 02:24 Oxygen Delivery Room Air 07/27/23 02:24 Temperature 36.4 C L 07/27/23 02:33 Pulse Rate 40 L 07/27/23 06:00 Respiratory Rate 16 07/27/23 06:00 Blood Pressure 120/74 07/27/23 06:00 Pulse Oximetry 99 07/27/23 06:00 Oxygen Delivery Room Air 07/27/23 02:24 Medical Decision Making MDM Narrative Medical decision making narrative: differential diagnosis includes ACS, atypical chest pain, pancreatitis, musculoskeletal jolie
[2023-07-27 05:43] LABS: Reflex Lactic Acid Yes or No Add Lactic
[2023-07-27 06:17] LABS: Troponin I < 0.012 ng/mL (0.000-0.034)
== END 2023-07-27 06:49 | disposition home or self-care (01) ==
PROVIDERS: Emergency Provider Emergency Medicine; PCP Family Medicine Adolescent Medicine
DX: R07.89 Other chest pain (principal); E78.5 Hyperlipidemia, unspecified; K21.9 Gastro-esophageal reflux disease without esophagitis; F41.9 Anxiety disorder, unspecified; Z87.01 Personal history of pneumonia (recurrent); Z86.16 Personal history of COVID-19; R00.1 Bradycardia, unspecified; I45.9 Conduction disorder, unspecified
CPT/HCPCS: 36415; 71045; 80053; 83605; 83690; 84484; 85025; 85610; 85730; 93005; 96374; 96376; 99284; A9270; J2405

== ENCOUNTER 2023-08-17 08:38 | Outpatient (CLI) | payer BC, SELFPAY ==
--- NOTE | ~2023-08-17 | US_ITS ---
Limited Abdominal Sonogram: Real-time sonographic imaging of the right upper quadrant was performed. Clinical History: Abnormal liver transaminase levels Findings: The liver appears normal with no evidence of mass lesion or bile duct dilatation. Main por fanny vein demonstrates normal direction of flow. The gallbladder is well distended, and appears normal with no evidence of gallstone or wall thickening. The common bile duct measures 4 mm. The visualize d pancreas, aorta, and IVC are unremarkable. Impression: No significant abnormality seen. Reviewed, dictated and finalized at location M. MOUNTER Impression: No significant abnormality seen.
== END 2023-08-17 08:39 | disposition home or self-care (01) ==
PROVIDERS: PCP Family Medicine Adolescent Medicine; Visit Provider Family Medicine Adolescent Medicine
DX: R74.01 Elevation of levels of liver transaminase levels (principal); R10.13 Epigastric pain; K76.0 Fatty (change of) liver, not elsewhere classified
CPT/HCPCS: 76705